=== PATIENT | female | born 1950 | race Caucasian/White ===

== ENCOUNTER 2019-01-14 16:08 | Inpatient (IN) ==
[2019-01-14] MEDS ORDERED: *HR* Heparin 5,000 UNIT/ML VIAL IVP ONE (21:36)
[2019-01-14] MEDS ORDERED: *HR* Heparin 5,000 UNIT/ML VIAL IVP PRN (21:36)
[2019-01-14] MEDS ORDERED: Heparin 25,000 UNIT/250 ML D5W 25,000 UNIT/250 ML IV.SOLN IVC SCH (21:45)
[2019-01-14] MEDS ORDERED: Ipratropium/Albuterol Neb 3 ML IH PRN (22:06)
[2019-01-14] MEDS ORDERED: Naloxone 0.4 MG/ML INJ IVP PRN (22:10)
[2019-01-14 23:07] LABS: Basophils % 0.2 %; Mean Corpuscular Volume 98.4 fL (83.0-100.0); Mean Platelet Volume 13.4 fL (9.4-12.4); Monocytes % 0.7 %
[2019-01-14 23:09] LABS: Hematocrit 37.7 % (35.3-44.9); Immature Granulocytes % 1.5 % (0-4); Lymphocytes # 0.9 K/mcL (0.6-4.6); Lymphocytes % 9.6 %; Mean Corpuscular HGB Conc 29.2 g/dL (31.6-35.5); Mean Corpuscular Hemoglobin 28.7 pg (28.0-33.3); Monocytes # 0.1 K/mcL (0.0-1.3); Neutrophils # 8.5 K/mcL (1.6-8.9); Nucleated Red Blood Cells 0.2 /100 WBC (0); Platelet Count 175 K/mcL (140-400); Red Blood Count 3.83 M/mcL (3.82-4.97); Red Cell Distribution Width 15.4 % (11.5-14.5)
--- NOTE | 2019-01-14 23:14 | Internal Med History&Physical ---
<Nathaniel Domingo S - Last Filed: 01/15/19 03:32> Date of Encounter: 01/15/19 Time of Encounter: 20:30 Internal Medicine - H&P: HPI Chief complaint: Shortness of breath Admitted From: Hospital to Hospital Transfer Plans for Post Hospital Care: Home History of present illness: Ms. Echevarria is a 68 year old female with PMHx of COPD on 3L home O2, CHF, HTN, DM, uterine cancer s/p resection (2007) presents to [place] as a transfer from [facility] with complaints of shortness of breath. Patient was saturating at 60% on 3L at [facility], was started on BIPAP, and transferred to [place]. Labs at [facility] were significant for WBC 15.2, trop 0.07 x2, pro-BNP 503, ABG pH 7.25 / pCO2 97 / HCO3 42. Patient is resting comfortably on BIPAP and is not in respiratory distress. She began feeling short of breath on Monday, and also admits to FLOOD, rhinorrhea, productive cough, lower extremity swelling. Her granddaughter gave her OTC cold and sinus medication which didn't provide any relief with her shortness of breath. Patient couldn't answer confidently if she takes lasix at home, and thinks she may have some but takes it as needed. She is on 3L O2 and had to increase it to 4L (max) at home, which only provided minimal relief. She is a former smoker, quit in 2004. Also quit drinking alcohol in 2004. Denies drug use. She has generalized pleuritic chest pain with deep breathing, but denies chest pain otherwise. She also admits to lower extremity swelling with redness of her right lower extremity, and her daughter states she was working in her garden this weekend. Patient doesn't recall being bitten by anything or seeing any ticks. She denies fevers/chills, nausea/vomiting/diarrhea, changes in bowel/bladder habits, numbness/tingling. Past Med Surg Social Fam HX - Past Medical History Medical history: arthritis, asthma, cancer, CHF, COPD, coronary artery disease, diabetes, hyperlipidemia, hypertension, myocardial infarction, renal disease - Past Surgical History Surgical History: cancer surgery, hysterectomy, knee replacement - Social History Smoking Status: Former smoker Alcohol use: none Drug use: none - Family History Daughter Living Status: Still Living Hx Family Cardiac Disorders: Yes (HTN) Hx Family Respiratory Disorders: No Hx Family Cancer: No Hx Family GI Disorders: No Hx Family Genitourinary Disorders: No Hx Family Endocrine Disorder: No Hx Family Musculoskeletal Disorders: No Hx Family Neuromuscular Disorders: No Hx Family Neurologic Disorders: No Hx Family HEENT Disorders: No Hx Family Autoimmune Disorders: No Hx Family Reproductive Disorders: No Hx Family Psychosocial Disorders: No Hx Family Medical Disorders: No Internal Medicine - H&P: Meds Gabapentin 800 mg PO TID 01/14/19 [History] Glimepiride [Amaryl] 2 mg PO BID 01/14/19 [History] Ipratropium/Albuterol Sulfate [Combivent Respimat Inhal [place]] 1 puff IH QID 01/14/19 [History] Ipratropium/Albuterol Sulfate [Iprat-Albut 0.5-3(2.5) mg/3 ml] 3 ml IH TID PRN 01/14/19 [History] Lisinopril [Zestril] 40 mg PO DAILY 01/14/19 [History] Metformin HCl [Glucophage] 500 mg PO BID 01/14/19 [History] Omeprazole [PriLOSEC] 40 mg PO DAILY 01/14/19 [History] Red Yeast Rice 600 mg PO DAILY 01/14/19 [History] Tiotropium [place] [Spiriva Respimat] 2 puff IH DAILY 01/14/19 [History] Tramadol HCl [Ultram] 50 mg PO Q6H PRN 01/14/19 [History] dilTIAZem HCl [Diltiazem 24Hr Cd] 360 mg PO DAILY 01/14/19 [History] Allergy/AdvReac Type Severity Reaction Status Date / Time acetaminophen [From Percocet] AdvReac See Verified 01/14/19 22:38 Comments oxycodone [From Percocet] AdvReac See Verified 01/14/19 22:38 Comments Kvjufwy-Egh-Frd Reductase AdvReac Muscle Pain Verified 01/14/19 22:38 Inhibitor [Statins] All Systems PM: A 10-system review of systems was performed and is negative for pertinent fin dings except as documented above in the HPI. - Constitutional Vitals: Temp Pulse Resp BP Pulse Ox 98.6 F 72 19 152/71 96 01/14/19 18:30 01/14/19 18:30 01/14/19 19:51 01/14/19 18:30 01/14/19 19:51 General appearance: Present: A&O X 3, morbidly obese, no acute distress Exam: Patient is resting well on BIPAP with no acute distress. - Eye Eye exam: Absent: conjunctival injection - Respiratory Respiratory exam: Present: rales (diffuse, worse in bases), wheezes (diffuse) - Cardiovascular Cardiovascular exam: Present: RRR. Absent: JVD - GI/Abdominal GI/Abdominal exam: Present: normal bowel sounds, soft. Absent: tenderness - Extremities Exam Extremities exam: Present: normal capillary refill, pedal edema (+3 pitting edema to knees bilaterally), warm, radial pulses palpable and symmetrical. Absent: calf tenderness - Expanded Lower Extremities Exam Lower Leg exam: Present: erythema (circular patch of erythema on right lateral lower leg) - Neurological Exam Neurological exam: Present: alert, oriented X3 (but had a difficult time answering basic questions about medical history and medications) - Psychiatric Psychiatric exam: Present: normal affect, normal mood - Skin Skin exam: Present: dry, warm Internal Med - H&P Results - Labs CBC & Chem 7: 01/14/19 22:54 01/14/19 22:54 - Assessment and Plan (1) Acute respiratory failure with hypoxemia Current Visit: Yes Status: Acute Assessment and plan: Likely 2/2 to mixed COPD and CHF exacerbation Patient presented to [facility] saturating at 60% on 2L oxygen She was placed on BIPAP at 45% and is now saturating at 94% She is not in any acute respiratory distress on BIPAP Initial ABG showed pH 7.25, pCO2 97, O2 69, HCO3 42 Will order d-dimer and venous doppler of lower extremities to rule out PE, may consider CTA pending results Will place patient on heparin drip as precaution WBC of 15.2 at [facility], will start IV doxycycline and rocephin in case infection Chest x-ray (2) COPD exacerbation Current Visit: Yes Status: Acute Assessment and plan: Patient with history of COPD on 3L home O2 Currently on BIPAP 45%, saturating at 94% Diffuse wheezing on my exam Will order solu-medrol and doxycycline Duonebs and albuertol inhaler PRN (3) CHF exacerbation Current Visit: Yes Status: Acute Assessment and plan: Crackles and lower extremity edema on my exam Unclear if patient uses lasix at home, she thinks she has some and takes it only as needed Start IV lasix 40 mg BID Chest x-ray Troponin is elevated, possibly due to exacerbation (0.07 at [facility], 0.05 here, continue to trend) proBNP 503 at [facility], repeat lab here Will get baseline echo Fluid restriction of 1.5 liters (51 oz) daily Monitor daily weight and I&Os Cardiac and diabetic diet Qualifiers: Heart failure type: unspecified Qualified Code(s): I50.9 - Heart failure, unspecified (4) Erythema of lower extremity Current Visit: Yes Status: Acute Assessment and plan: Patient with circular, erythematous patch on right lower extremity Patient was in garden all weekend WBC of 15.2 at [facility], will repeat here Start patient on IV doxycycline to cover for tick borne pathogens and MRSA cellulitis Lyme antibody titer RMSF antibody titer Marked line around erythematous region to assess change (5) HTN (hypertension) Current Visit: Yes Status: Acute Assessment and plan: BP 152/71 on arrival Continue home medications Qualifiers: Hypertension type: unspecified Qualified Code(s): I10 - Essential (primary) hypertension (6) Diabetes mellitus Current Visit: Yes Status: Acute Assessment and plan: Will start low-dose coverage sliding scale insulin TIDAC and HS Glucose checks Diabetic and cardiac diet Qualifiers: Qualified Code(s): E11.9 - Type 2 diabetes mellitus without complications (7) DVT prophylaxis Current Visit: Yes Status: Acute Assessment and plan: Patient on heparin drip - Time Spent With Patient Total time spent is greater than 50% in coordination of care (as documented) at patient's floor/unit and/or counseling patient: <Cruz Guardado - Last Filed: 01/15/19 05:55> Date of Encounter: 01/14/19 Time of Encounter: 22:32 - Constitutional Constitutional: fatigue, weakness, no chills, no fever(s), no night sweats - EENT Eyes: no blurry vision, no change in vision Ears: no ear pain, no tinnitus Nose, mouth and throat: no nasal congestion, no sore throat - Cardiovascular Cardiovascular ROS IM: dyspnea, dyspnea on exertion, edema, orthopnea, paroxysmal nocturnal dyspnea, no chest pain - Respiratory Respiratory: cough, wheezing, pain on inspiration, pain with cough, no hemoptysis, no chest congestion, no excessive phlegm production, no change in phlegm color - Gastrointestinal Gastrointestinal: abdominal pain, nausea, no diarrhea, no hematemesis, no hematochezia, no melena - Genitourinary Genitourinary: no dysuria, no flank pain, no hematuria - Musculoskeletal Musculoskeletal ROS IM: muscle cramps - Neurological Neurological ROS: no disequilibrium, no dizziness, no focal weakness, no frequent falls, no headache(s) - Psychiatric Psychiatric: anxiety, no depression - Endocrine Endocrine IM: no polydipsia, no polyuria - Hematologic/Lymphatic Hematologic/Lymphatic: easy bruising - Allergic/Immunologic Allergic/Immunologic: no GI upset with certain foods - Constitutional Vitals: Temp Pulse Resp BP Pulse Ox 98.6 F 87 16 165/73 93 01/15/19 03:29 01/15/19 03:29 01/15/19 04:32 01/15/19 03:01/15/19 04:32 General appearance: Present: A&O X 3, no acute distress Exam: tolerating BiPap mask - Head Head exam: Present: atraumatic, normal inspection - Eye Eye exam: Present: EOMI, PERRL. Absent: scleral icterus Pupils: Present: normal accommodation - ENT ENT exam: Present: mucous membranes dry, normal exam, normal oropharynx - Neck Neck exam general surgery: Present: full ROM, supple, trachea midline. Absent: lymphadenopathy, tenderness, nuchal rigidity, thyromegaly - Respiratory Respiratory exam: Present: prolonged expiratory phase, rales, respiratory distress, rhonchi, wheezes, tachypnea. Absent: chest wall tenderness - Cardiovascular Cardiovascular exam: Present: RRR, +S1, +S2. Absent: diastolic murmur, systolic murmur - GI/Abdominal GI/Abdominal exam: Present: soft. Absent: guarding, hepatomegaly, mass, rebound, splenomegaly, tenderness - Extremities Exam Extremities exam: Present: normal capillary refill, pedal edema (3+), warm, radial pulses palpable and symmetrical. Absent: normal inspection, mottling, tenderness - Back Exam Back exam: Absent: CVA tenderness (L), CVA tenderness (R) - Neurological Exam Neurological exam: Present: alert, CN II-XII intact, oriented X3, no focal deficits - Psychiatric Psychiatric exam: Present: normal affect, normal mood - Skin Skin exam: Present: dry, intact, warm Internal Med - H&P Results - Labs CBC & Chem 7: 01/14/19 22:54 01/14/19 22:54 Labs: Short CBC 01/14/19 Range/Units 22:54 WBC 9.7 (4.3-11.1) K/mcL Hgb 11.0 L (11.5-15.4) g/dL Hct 37.7 (35.3-44.9) % Plt Count 175 (140-400) K/mcL Neutrophils # 8.5 (1.6-8.9) K/mcL BMP 01/14/19 22:54 Sodium 142 Potassium 4.9 Chloride 102 Carbon Dioxide 33 H BUN 21 Creatinine 0.72 Glucose 188 H Calcium 9.1 Cardiac Enzymes 01/14/19 Range/Units 22:54 Troponin I 0.05 H* (< 0.04) ng/mL - Impressions ITS Impressions Chest X-Ray 01/14/19 22:35 IMPRESSION: Features of heart failure, including bilateral effusions with moderate interstitial pulmonary edema. Superimposed infection such as pneumonia or aspiration could be present in the appropriate clinical context. D/ / Kishor Guzman / Kishor Guzman Interpreting Provider: Kishor Guzman - Assessment and Plan (1) Acute respiratory failure with hypoxemia Current Visit: Yes Status: Acute (2) COPD exacerbation Current Visit: Yes Status: Acute (3) CHF exacerbation Current Visit: Yes Status: Acute Qualifiers: Heart failure type: unspecified Qualified Code(s): I50.9 - Heart failure, unspecified (4) Erythema of lower extremity Current Visit: Yes Status: Acute (5) HTN (hypertension) Current Visit: Yes Status: Acute Qualifiers: Hypertension type: unspecified Qualified Code(s): I10 - Essential (primary) hypertension (6) Diabetes mellitus Current Visit: Yes Status: Acute Qualifiers: Qualified Code(s): E11.9 - Type 2 diabetes mellitus without complications (7) DVT prophylaxis Current Visit: Yes Status: Acute - Time Spent With Patient Total time spent is greater than 50% in coordination of care (as documented) at patient's floor/unit and/or counseling patient: - Attending Attestation I discussed the patient [place], past medical history, review of systems, lab data, imaging data, and exam findings with Dr. Domingo. I then saw and examined patient independently as well. She remains on BiPAP, but she is trying to pull the mask off. She denies any chest pain, but she has significant respiratory di fficulty with hypoxemia, wheezing, coughing, and cough. She will be kept on BiPAP overnight and try to wean off in the morning. We will keep her on antibiotics, aerosols, and steroids. We will try to wean her off BiPAP and uses it on an as-needed basis later today to try and diurese her and monitor her troponin levels. We will continue Heparin drip and consider CTA chest and/or BLE Dopplers to rule out VTE. We will order an ECHO as we have no baseline LV function. She may also warrant cardiology consultation. We will keep her on sliding scale insulin and monitor glucose with adjustments as necessary. If she fails BiPAP weaning, she will need pulmonary consultation and guidance for further management. Other than my comments above and documented examined findings, I agree with Dr. Domingo's assessment and plan.
[2019-01-14] MEDS ORDERED: Dextrose Gel 15 GM/37.5 ML TUBE PO PRN ×2 (23:21)
[2019-01-14] MEDS ORDERED: *HR* Dextrose 50 % in Water (Syg) 50 ML SYRINGE IVP PRN (23:21)
[2019-01-14] MEDS ORDERED: D5% in Water 1,000 ML IVC PRN (23:21)
[2019-01-14] MEDS ORDERED: traMADol 50 MG TABLET PO PRN (23:23)
[2019-01-14 23:29] LABS: BUN/Creatinine Ratio 29 (6-26); Blood Urea Nitrogen 21 mg/dL (8-23); Calcium 9.1 mg/dL (8.6-10.3); Carbon Dioxide 33 mEq/L (23-29); Chloride 102 mEq/L (98-107); Glucose 188 mg/dL (70-105); Heparin anti-factor XA UFH 0.02 IU/mL (0.30-0.70); INR 1.1; Magnesium 1.7 mg/dL (1.6-2.6); Osmolality,Calculated 302 (280-300); Potassium 4.9 mEq/L (3.5-5.1); Prothrombin Time 12.4 Seconds (9.4-12.1); Sodium 142 mEq/L (136-145); eGFR For Non-African Americans > 60 (> 60)
[2019-01-14] MEDS: cefTRIAXone 1,000 MG in Water for inj. (sterile) 20 ML 10 ML IVP SCH (23:31)
[2019-01-14] MEDS: Furosemide 40 MG/4 ML VIAL IVP SCH (23:31)
[2019-01-15] LABS: Platelet Estimate Normal (Normal)
[2019-01-15] MEDS: Insulin LISPRO 300 UNITS/3 ML VIAL SQ SCH ×5 (00:16→20:26)
[2019-01-15] MEDS: Gabapentin 400 MG CAPSULE PO SCH ×4 (00:53→20:30)
[2019-01-15] MEDS ORDERED: *HR* LORazepam 2 MG/ML VIAL IVP ONE (02:00)
[2019-01-15] MEDS ORDERED: MethylPREDNISolone 40 MG/ML VIAL IVP SCH (06:00)
[2019-01-15] MEDS: Doxycycline 100 MG in 0.9 % Sodium Chloride Mini Bag 100 ML IVPB SCH ×2 (06:45→18:24)
[2019-01-15] MEDS: *HR* Heparin 5,000 UNIT/ML VIAL IVP PRN ×2 (07:01→14:07)
[2019-01-15] MEDS: Lisinopril 20 MG TABLET PO SCH (09:01)
[2019-01-15] MEDS: cefTRIAXone 1,000 MG in Water for inj. (sterile) 20 ML 10 ML IVP SCH (09:02)
[2019-01-15] MEDS: Furosemide 40 MG/4 ML VIAL IVP SCH ×2 (09:02→20:29)
[2019-01-15] MEDS: Diltiazem CD (24hr) 180 MG CAPSULE PO SCH (09:02)
[2019-01-15] MEDS ORDERED: Perflutren Lipid Microsphere 1.3 ML in 0.9 % Sodium Chloride 8.7 ML IVP ONE (10:46)
[2019-01-15] MEDS ORDERED: Isovue-370 500 ML BOTTLE IVP ONE (14:54)
--- NOTE | 2019-01-15 14:59 | Internal Med Progress Note ---
Hospitalist Progress Note - Encounter Date of Encounter: 01/15/19 Time of Encounter: 14:56 - Subjective Interval History: Patient seen and examined at bedside. Patient states that she feels slightly better today. She feels like her breathing is slightly improved. She denies any chest pain, fever, chills. - Exam Vitals: Temp Pulse Resp BP Pulse Ox 98.5 F 80 20 158/71 91 01/15/19 12:15 01/15/19 12:15 01/15/19 12:15 01/15/19 12:15 01/15/19 12:15 Exam: Gen.: Alert and oriented 3, no acute distress Heart: Regular rate and rhythm, no murmurs, rubs, gallops Lungs: Diminished bibasilar with rales, rare scattered wheezes, no rhonchi. - Assessment and Plan (1) Acute and chronic respiratory failure Current Visit: Yes Status: Acute Assessment and Plan: Etiology likely multifactorial in the setting of CHF exacerbation, COPD exacerbation. Clinically appears improving. Patient also had elevated d-dimer and is hypoxic so PE cannot be ruled out. We will obtain CT of the chest. Continue supplemental oxygen to maintain saturation greater than 88%. Patient uses 3 L at baseline. (2) COPD exacerbation Current Visit: Yes Status: Acute Assessment and Plan: Patient is wheezing on exam with hypoxia and shortness of breath. Continue doxycycline, transition to oral prednisone 40 mg daily. (3) CHF exacerbation Current Visit: Yes Status: Acute Assessment and Plan: Echocardiogram reveals moderate diastolic dysfunction with preserved EF. Patient has evidence of acute exacerbation with pulmonary edema and respiratory failure. Continue IV diuresis, recheck renal function morning. (4) Rash Current Visit: Yes Status: Acute Assessment and Plan: Rash noted on lower extremities. Continue doxycycline. Lyme titer noted to be negative. (5) HTN (hypertension) Current Visit: Yes Status: Acute Assessment and Plan: Blood pressure mildly elevated but acceptable. Continue home medications. Continue monitor. (6) Diabetes mellitus Current Visit: Yes Status: Acute Assessment and Plan: Blood sugars under good control. Continue sliding scale insulin. (7) DVT prophylaxis Current Visit: Yes Status: Acute Assessment and Plan: Currently on heparin drip - Time Spent with Patient Total time spent is greater than 50% in coordination of care (as documented) at patient's floor/unit and/or counseling patient: Internal Medicine: Result - Labs CBC & Chem 7: 01/14/19 22:54 01/14/19 22:54 Labs: Short CBC 01/14/19 Range/Units 22:54 WBC 9.7 (4.3-11.1) K/mcL Hgb 11.0 L (11.5-15.4) g/dL Hct 37.7 (35.3-44.9) % Plt Count 175 (140-400) K/mcL Neutrophils # 8.5 (1.6-8.9) K/mcL BMP 01/14/19 22:54 Sodium 142 Potassium 4.9 Chloride 102 Carbon Dioxide 33 H BUN 21 Creatinine 0.72 Glucose 188 H Calcium 9.1 Cardiac Enzymes 01/14/19 01/15/19 01/15/19 Range/Units 22:54 05:33 12:40 Troponin I 0.05 H* 0.04 H* 0.04 H* (< 0.04) ng/mL - ABG Interpretation ABG results: PT/INR, D-dimer PT 12.4 Seconds (9.4-12.1) H 01/14/19 22:54 938 ng/mLFEU (0-500) H 01/14/19 22:54 - Impressions Impressions Chest X-Ray 01/14/19 22:35 IMPRESSION: Features of heart failure, including bilateral effusions with moderate interstitial pulmonary edema. Superimposed infection such as pneumonia or aspiration could be present in the appropriate clinical context. D/ / Kishor Guzman / Kishor Guzman Interpreting Provider: Kishor Guzman Echocardiogram 01/15/19 21:36 Impressions: LVEF 60%. Moderate left ventricular diastolic dysfunction. Definity echo contrast was used. Normal right ventricular structure and function. Borderline mild evidence for aortic stenosis. No pulmonary hypertension. Left Ventricular Wall Motion: Rest Echo Findings All wall segments showed normal motion. Findings: Study Quality * Technically challenging due to body habitus. ECG Findings * Normal sinus rhythm. Left Ventricle * Moderate left ventricular diastolic dysfunction. * Definity echo contrast was used. * LV chamber size and wall thickness measurements not well obtained. * LVEF 60%. Right Ventricle * Normal right ventricular structure and function. Left Atrium * Moderate-severely dilated left atrium. Right Atrium * Normal right atrial size. Aortic Valve * Aortic valve not well visualized. * Borderline mild evidence for aortic stenosis. * Trace aortic regurgitation. Mitral Valve * Mildly calcified mitral valve leaflets. * No mitral stenosis. * Trace mitral regurgitation. Tricuspid Valve * Tricuspid valve not well visualized. * Estimated RA pressure is 3 mmHg. * Estimated RVSP is 12 mmHg. * No pulmonary hypertension. Pulmonic Valve * Pulmonic valve is not well visualized. * No pulmonic stenosis. * No pulmonic regurgitation. Pulmonary Artery * Pulmonary artery not well visualized. Aorta * Not well visualized. Pericardium * There is no pericardial effusion present. Interatrial Septum * No evidence of PFO by color Doppler. IVC * Normal IVC dimensions and inspiratory collapse. Consult Discharge Plan - Plan Referrals: Henry Jerry DO [Primary Care Provider] - (1) Acute and chronic respiratory failure Qualifiers: Respiratory failure complication: hypoxia Qualified Code(s): J96.21 - Acute and chronic respiratory failure with hypoxia (3) CHF exacerbation Qualifiers: Heart failure type: diastolic Qualified Code(s): I50.33 - Acute on chronic diastolic (congestive) heart failure (5) HTN (hypertension) Qualifiers: Hypertension type: unspecified Qualified Code(s): I10 - Essential (primary) hypertension (6) Diabetes mellitus Qualifiers: Qualified Code(s): E11.9 - Type 2 diabetes mellitus without complications
[2019-01-16] MEDS: Doxycycline 100 MG in 0.9 % Sodium Chloride Mini Bag 100 ML IVPB SCH ×2 (04:57→17:04)
[2019-01-16 05:11] LABS: Basophils % 0.2 %; Eosinophils % 0.1 %; Hemoglobin 11.3 g/dL (11.5-15.4); Immature Granulocytes % 0.7 % (0-4); Lymphocytes # 2.7 K/mcL (0.6-4.6); Lymphocytes % 17.5 %; Mean Corpuscular Hemoglobin 28.4 pg (28.0-33.3); Mean Platelet Volume 13.8 fL (9.4-12.4); Monocytes # 1.1 K/mcL (0.0-1.3); Monocytes % 7.3 %; Neutrophils # 11.4 K/mcL (1.6-8.9); Platelet Count 191 K/mcL (140-400); Red Blood Count 3.98 M/mcL (3.82-4.97); Red Cell Distribution Width 15.6 % (11.5-14.5); Segmented Neutrophils % 74.2 %
[2019-01-16 05:32] LABS: BUN/Creatinine Ratio 36 (6-26); Blood Urea Nitrogen 27 mg/dL (8-23); Calcium 8.8 mg/dL (8.6-10.3); Carbon Dioxide 39 mEq/L (23-29); Chloride 96 mEq/L (98-107); Glucose 119 mg/dL (70-105); Magnesium 1.9 mg/dL (1.6-2.6); Osmolality,Calculated 302 (280-300); Potassium 4.4 mEq/L (3.5-5.1); Sodium 143 mEq/L (136-145); eGFR For Non-African Americans > 60 (> 60)
[2019-01-16] MEDS: Insulin LISPRO 300 UNITS/3 ML VIAL SQ SCH ×4 (08:29→20:07)
[2019-01-16] MEDS: Lisinopril 20 MG TABLET PO SCH (08:30)
[2019-01-16] MEDS: Gabapentin 400 MG CAPSULE PO SCH ×3 (08:30→20:03)
[2019-01-16] MEDS: predniSONE 20 MG TABLET PO SCH (08:30)
[2019-01-16] MEDS: Diltiazem CD (24hr) 180 MG CAPSULE PO SCH (08:30)
[2019-01-16] MEDS: Furosemide 40 MG/4 ML VIAL IVP SCH ×2 (08:30→20:04)
--- NOTE | 2019-01-16 11:58 | Internal Med Progress Note ---
Hospitalist Progress Note - Encounter Date of Encounter: 01/16/19 Time of Encounter: 11:55 - Subjective Interval History: Patient seen and examined at bedside. Patient states that she feels pretty good today. She feels like her breathing is much improved. She reports mild cough that is improving. Denies any chest pain, fever, chills. - Exam Vitals: Temp Pulse Resp BP Pulse Ox 98.0 F 59 18 145/79 92 01/16/19 11:40 01/16/19 11:40 01/16/19 11:40 01/16/19 11:40 01/16/19 11:40 Exam: Gen.: Alert and oriented 3, no acute distress Heart: Regular rate and rhythm, no murmurs, rubs, gallops Lungs: Diminished bibasilar with no rales, rhonchi, wheezes. - Assessment and Plan (1) Acute and chronic respiratory failure Current Visit: Yes Status: Resolved Assessment and Plan: Resolved at this time. Patient has returned to her baseline O2 dose of 4 L. C ontinue supplemental oxygen at 4 L. (2) Multiple thyroid nodules Current Visit: Yes Status: Acute Assessment and Plan: Multiple thyroid nodules noted on CT of the chest. We will obtain thyroid ultrasound. TSH checked and normal. (3) COPD exacerbation Current Visit: Yes Status: Acute Assessment and Plan: Wheezing has resolved, clinically the patient is improving. Continue doxycycline, transition to oral prednisone 40 mg daily. Today's date 3 of antibiotics and steroids, we will continue for a total of 5 days. (4) CHF exacerbation Current Visit: Yes Status: Acute Assessment and Plan: Echocardiogram reveals moderate diastolic dysfunction with preserved EF. Patient has evidence of acute exacerbation with pulmonary edema and respiratory failure. Clinically improving, renal function stable. Continue IV diuresis, likely transition to by mouth tomorrow. (5) Rash Current Visit: Yes Status: Acute Assessment and Plan: Rash noted on lower extremities. Continue doxycycline. Lyme titer noted to be negative. (6) HTN (hypertension) Current Visit: Yes Status: Acute Assessment and Plan: Blood pressure mildly elevated but acceptable. Continue home medications. Continue monitor. (7) Diabetes mellitus Current Visit: Yes Status: Acute Assessment and Plan: Blood sugars under good control. Continue sliding scale insulin. (8) DVT prophylaxis Current Visit: Yes Status: Acute Assessment and Plan: Currently on heparin drip - Time Spent with Patient Total time spent is greater than 50% in coordination of care (as documented) at patient's floor/unit and/or counseling patient: Internal Medicine: Result - Labs CBC & Chem 7: 01/16/19 03:59 01/16/19 03:59 Labs: Short CBC 01/16/19 Range/Units 03:59 WBC 15.3 H D (4.3-11.1) K/mcL Hgb 11.3 L (11.5-15.4) g/dL Hct 39.0 (35.3-44.9) % Plt Count 191 (140-400) K/mcL Neutrophils # 11.4 H (1.6-8.9) K/mcL BMP 01/16/19 03:59 Sodium 143 Potassium 4.4 Chloride 96 L Carbon Dioxide 39 H BUN 27 H Creatinine 0.76 Glucose 119 H Calcium 8.8 Cardiac Enzymes 01/15/19 Range/Units 12:40 Troponin I 0.04 H* (< 0.04) ng/mL - ABG Interpretation ABG results: PT/INR, D-dimer PT 12.4 Seconds (9.4-12.1) H 01/14/19 22:54 938 ng/mLFEU (0-500) H 01/14/19 22:54 - Impressions Impressions Chest CTA 01/15/19 14:54 IMPRESSION: Moderate bilateral pleural effusions and bibasilar airspace disease. Stable left adrenal mass incompletely imaged. Nonemergent MRI would be helpful for further characterization if clinically warranted. Bilateral thyroid lesions measuring up to 15 mm on the right. Follow-up nonemergent thyroid ultrasound recommended non emergently if this has not already been performed. D/ / Srikanth Bergman MD / Srikanth Bergman MD Interpreting Provider: Srikanth Bergman MD Echocardiogram 01/15/19 21:36 Impressions: LVEF 60%. Moderate left ventricular diastolic dysfunction. Definity echo contrast was used. Normal right ventricular structure and function. Borderline mild evidence for aortic stenosis. No pulmonary hypertension. Left Ventricular Wall Motion: Rest Echo Findings All wall segments showed normal motion. Findings: Study Quality * Technically challenging due to body habitus. ECG Findings * Normal sinus rhythm. Left Ventricle * Moderate left ventricular diastolic dysfunction. * Definity echo contrast was used. * LV chamber size and wall thickness measurements not well obtained. * LVEF 60%. Right Ventricle * Normal right ventricular structure and function. Left Atrium * Moderate-severely dilated left atrium. Right Atrium * Normal right atrial size. Aortic Valve * Aortic valve not well visualized. * Borderline mild evidence for aortic stenosis. * Trace aortic regurgitation. Mitral Valve * Mildly calcified mitral valve leaflets. * No mitral stenosis. * Trace mitral regurgitation. Tricuspid Valve * Tricuspid valve not well visualized. * Estimated RA pressure is 3 mmHg. * Estimated RVSP is 12 mmHg. * No pulmonary hypertension. Pulmonic Valve * Pulmonic valve is not well visualized. * No pulmonic stenosis. * No pulmonic regurgitation. Pulmonary Artery * Pulmonary artery not well visualized. Aorta * Not well visualized. Pericardium * There is no pericardial effusion present. Interatrial Septum * No evidence of PFO by color Doppler. IVC * Normal IVC dimensions and inspiratory collapse. Consult Discharge Plan - Plan Referrals: Henry Jerry DO [Primary Care Provider] - 01/23/19 2:00 pm (please send discharge summary) (1) Acute and chronic respiratory failure Qualifiers: Respiratory failure complication: hypoxia Qualified Code(s): J96.21 - Acute and chronic respiratory failure with hypoxia (4) CHF exacerbation Qualifiers: Heart failure type: diastolic Qualified Code(s): I50.33 - Acute on chronic diastolic (congestive) heart failure (6) HTN (hypertension) Qualifiers: Hypertension type: unspecified Qualified Code(s): I10 - Essential (primary) hypertension (7) Diabetes mellitus Qualifiers: Qualified Code(s): E11.9 - Type 2 diabetes mellitus without complications
[2019-01-16] MEDS: *HR* Heparin 5,000 UNIT/ML VIAL SQ SCH ×2 (15:05→23:19)
[2019-01-17] MEDS: Doxycycline 100 MG in 0.9 % Sodium Chloride Mini Bag 100 ML IVPB SCH (06:02)
[2019-01-17] MEDS: *HR* Heparin 5,000 UNIT/ML VIAL SQ SCH ×2 (06:03→14:02)
[2019-01-17 06:31] LABS: Basophils % 0.3 %; Eosinophils # 0.1 K/mcL (0.0-0.6); Eosinophils % 0.7 %; Hematocrit 39.5 % (35.3-44.9); Hemoglobin 11.8 g/dL (11.5-15.4); Lymphocytes # 3.6 K/mcL (0.6-4.6); Lymphocytes % 26.2 %; Mean Corpuscular HGB Conc 29.9 g/dL (31.6-35.5); Mean Corpuscular Hemoglobin 28.4 pg (28.0-33.3); Mean Platelet Volume 13.9 fL (9.4-12.4); Monocytes # 0.8 K/mcL (0.0-1.3); Monocytes % 6.2 %; Neutrophils # 8.8 K/mcL (1.6-8.9); Platelet Count 183 K/mcL (140-400); Red Blood Count 4.16 M/mcL (3.82-4.97); Red Cell Distribution Width 15.2 % (11.5-14.5); Segmented Neutrophils % 64.6 %
[2019-01-17 06:38] LABS: BUN/Creatinine Ratio 39 (6-26); Blood Urea Nitrogen 27 mg/dL (8-23); Calcium 9.1 mg/dL (8.6-10.3); Carbon Dioxide 42 mEq/L (23-29); Chloride 96 mEq/L (98-107); Glucose 106 mg/dL (70-105); Osmolality,Calculated 302 (280-300); Potassium 4.5 mEq/L (3.5-5.1); Sodium 143 mEq/L (136-145); eGFR For Non-African Americans > 60 (> 60)
[2019-01-17] MEDS ORDERED: Albuterol 2.5 MG/3 ML NEBULIZER IH PRN (07:40)
--- NOTE | 2019-01-17 07:48 | Discharge Summary ---
- NOTES TO OUTPATIENT PROVIDER Notes to Outpatient Provider: Patient underwent CT of the chest that incidentally found an adrenal nodule and multiple thyroid nodules, thyroid ultrasound showed multiple benign-appearing nodules. Recommend continued outpatient follow-up for adrenal nodule and thyroid nodules. Orders not resulted at time of discharge: Pending orders 01/14/19 22:54 ProBrain Natriuretic Peptide Routine [facility] Spotted Ab,IgG & IgM Routine Date of Encounter: 01/17/19 Time of Encounter: 07:47 - Discharge Diagnosis (1) Acute and chronic respiratory failure Priority: Primary Status: Resolved Qualifiers: Respiratory failure complication: hypoxia Qualified Code(s): J96.21 - Acute and chronic respiratory failure with hypoxia (2) COPD exacerbation Priority: Primary Status: Acute (3) CHF exacerbation Priority: Primary Status: Acute Qualifiers: Heart failure type: diastolic Qualified Code(s): I50.33 - Acute on chronic diastolic (congestive) heart failure (4) Multiple thyroid nodules Priority: Secondary Status: Chronic (5) Rash Priority: Secondary Status: Acute (6) HTN (hypertension) Priority: Secondary Status: Acute Qualifiers: Hypertension type: unspecified Qualified Code(s): I10 - Essential (primary) hypertension (7) Diabetes mellitus Priority: Secondary Status: Acute Qualifiers: Qualified Code(s): E11.9 - Type 2 diabetes mellitus without complications Hospital course: Ms. Echevarria is a 68 year old female with history of hypertension, diabetes presented with shortness of breath. She has had been acute on chronic hypoxic respiratory failure which is likely multifactorial likely due to a combination of COPD exacerbation and diastolic heart failure exacerbation. She underwent IV diuresis and responded well. She is also treated with doxycycline and prednisone for COPD exacerbation. Patient also had a CTA to rule out PE which was negative for PE but did find incidentally multiple thyroid nodules as well as an adrenal nodule. Per radiology recommendations I did perform a thyroid ultrasound that showed multiple benign-appearing nodules. Radiology recommended continued outpatient follow-up for these nodules as well as the adrenal nodule which I do recommend. Patient returned to baseline at the time of discharge. Patient will be discharged home in stable condition. Discharge discussed with: patient - Time Spent with Patient Total time spent providing and/or coordinating discharge services: Time spent: Greater than 30 minutes (35 minutes) - Discharge Medications Prescriptions: New Doxycycline 100 mg PO Q12HR #5 capsule Furosemide [Lasix] 40 mg PO DAILY #30 tablet predniSONE [PredniSONE] 40 mg PO DAILY #3 tablet Continued Ipratropium/Albuterol Sulfate [Combivent Respimat 20-100 Mcg] 1 puff IH QID Ipratropium/Albuterol Sulfate [Iprat-Albut 0.5-3(2.5) mg/3 ml] 3 ml IH TID PRN PRN Reason: Shortness Of Breath Gabapentin 800 mg PO TID dilTIAZem HCl [Diltiazem 24Hr Cd] 360 mg PO DAILY Glimepiride [Amaryl] 2 mg PO HS Omeprazole [PriLOSEC] 40 mg PO DAILY Metformin HCl [Glucophage] 500 mg PO BID Lisinopril [Zestril] 40 mg PO DAILY Tramadol HCl [Ultram] 50 mg PO Q6H PRN PRN Reason: Pain Tiotropium [place] [Spiriva Respimat] 2 puff IH DAILY Red Yeast Rice 600 mg PO DAILY Aspirin [Lo-Dose Aspirin EC] 81 mg PO DAILY Cholecalciferol (D-3) [Vitamin D] 1,000 unit PO DAILY Cyanocobalamin (Vitamin B-12) [Vitamin B-12] 1,000 mcg PO DAILY DiphenhydraMINE [Benadryl] 50 mg PO BID Iron Amino Acid Chelate/B12/FA [Ferractiv Iron 27 mg Formula] 1 cap PO DAILY Naproxen Sodium [Aleve] 220 mg PO HS Home Medications: Gabapentin 800 mg PO TID 01/14/19 [History] Glimepiride [Amaryl] 2 mg PO HS 01/14/19 [History] Ipratropium/Albuterol Sulfate [Combivent Respimat 20-100 Mcg] 1 puff IH QID 01/14/19 [History] Ipratropium/Albuterol Sulfate [Iprat-Albut 0.5-3(2.5) mg/3 ml] 3 ml IH TID PRN 01/14/19 [History] Lisinopril [Zestril] 40 mg PO DAILY 01/14/19 [History] Metformin HCl [Glucophage] 500 mg PO BID 01/14/19 [History] Omeprazole [PriLOSEC] 40 mg PO DAILY 01/14/19 [History] Red Yeast Rice 600 mg PO DAILY 01/14/19 [History] Tiotropium [place] [Spiriva Respimat] 2 puff IH DAILY 01/14/19 [History] Tramadol HCl [Ultram] 50 mg PO Q6H PRN 01/14/19 [History] dilTIAZem HCl [Diltiazem 24Hr Cd] 360 mg PO DAILY 01/14/19 [History] Aspirin [Lo-Dose Aspirin EC] 81 mg PO DAILY 01/15/19 [History] Cholecalciferol (D-3) [Vitamin D] 1,000 unit PO DAILY 01/15/19 [History] Cyanocobalamin (Vitamin B-12) [Vitamin B-12] 1,000 mcg PO DAILY 01/15/19 [ History] DiphenhydraMINE [Benadryl] 50 mg PO BID 01/15/19 [History] Iron Amino Acid Chelate/B12/FA [Ferractiv Iron 27 mg Formula] 1 cap PO DAILY 01/15/19 [History] Naproxen Sodium [Aleve] 220 mg PO HS 01/15/19 [History] Doxycycline 100 mg PO Q12HR #5 capsule 01/17/19 [Rx] Furosemide [Lasix] 40 mg PO DAILY #30 tablet 01/17/19 [Rx] predniSONE [PredniSONE] 40 mg PO DAILY #3 tablet 01/17/19 [Rx] Allergies/Adverse Reactions: Allergy/AdvReac Type Severity Reaction Status Date / Time oxycodone [From Percocet] AdvReac See Verified 01/14/19 22:38 Comments Bubdqyc-Fik-Wai Reductase AdvReac Muscle Pain Verified 01/14/19 22:38 Inhibitor [Statins] Date of admission: 01/14/19 18:18 Primary care physician: Henry Jerry Consults: 01/14/19 18:45 Consult to Wallpaper Printer [CONS] Routine Reason for SW Consult: may need home health services 01/16/19 08:13 Consult to Occupational Therapy [CONS] Routine Comment: Evaluate, develop and implement POC Reason for Consult: Weakness Does patient have active BEDREST order?: No Is patient medically & hemodynamically stable?: Yes Consult to Physical Therapy [CONS] Routine Comment: Evaluate, develop and implement POC Reason for Consult: Weakness Does patient have active BEDREST order?: No Is patient medically & hemodynamically stable?: Yes Discharging clinician: Ap Edmond Anticipated date of discharge: 01/17/19 - Constitutional Vitals: Temp Pulse Resp BP Pulse Ox 97.8 F 58 16 152/70 97 01/17/19 04:24 01/17/19 04:24 01/17/19 04:24 01/17/19 04:24 01/17/19 04:24 General appearance: Present: A&O X 3, no acute distress Exam: . - Respiratory Respiratory exam: Present: CTAB. Absent: rales, rhonchi, wheezes - Cardiovascular Cardiovascular exam: Present: RRR. Absent: gallop, rubs, systolic murmur - Patient Status Disposition: Home, Self-Care Condition: Fair Functional capacity at discharge: independent ambulation Overall status at discharge: patient is progressing back to baseline - Discharge Instructions Follow Up With: Henry Jerry DO [Primary Care Provider] - 01/23/19 2:00 pm (please send discharge summary) Additional Instructions: Please follow-up with your primary care physician within one week. Please resume your home medications. Please take your Lasix daily. Please take your antibiotic and steroid until complete. Please return for any new or worsening symptoms. - Diet and Activity Activity: increase activity as tolerated Diet: diabetic diet, low salt diet
[2019-01-17] MEDS ORDERED: Furosemide 40 MG/4 ML VIAL IVP SCH (08:00)
[2019-01-17] MEDS: Insulin LISPRO 300 UNITS/3 ML VIAL SQ SCH ×3 (08:15→17:00)
[2019-01-17] MEDS: Lisinopril 20 MG TABLET PO SCH (08:29)
[2019-01-17] MEDS: Diltiazem CD (24hr) 180 MG CAPSULE PO SCH (08:29)
[2019-01-17] MEDS: Gabapentin 400 MG CAPSULE PO SCH ×2 (08:29→14:02)
[2019-01-17] MEDS: predniSONE 20 MG TABLET PO SCH (08:29)
[2019-01-17] MEDS ORDERED: Furosemide 40 MG TABLET PO SCH (09:00)
[2019-01-17 12:13] VITALS: BP 164/70
[2019-01-17] MEDS ORDERED: Doxycycline 100 MG CAPSULE PO SCH (18:00)
== END 2019-01-17 18:06 | disposition home or self-care (01) | DRG 291 ==
LOC: SUATTDRO 18:18 → 2NNU 18:18 → 2ANU 01-17 01:27
PROVIDERS: ADMIT Student in an Organized Health Care Education/Training Program; ATTEND Internal Medicine

== ENCOUNTER 2019-04-24 18:42 | Inpatient (IN) ==
[2019-04-24] MEDS ORDERED: Aspirin 81 MG TAB.CHEW PO ONE (18:57)
--- NOTE | 2019-04-24 19:00 | Emergency Department Note ---
Disposition Clinical Impression: Abdominal pain Qualifiers: Abdominal location: epigastric Qualified Code(s): R10.13 - Epigastric pain Disposition: Admitted As Inpatient Condition: Fair Instructions: Biliary Colic (ED) Prescriptions: Hyoscyamine SL [Levsin SL] 0.125 mg SL Q4HR #12 tab.subl Referrals: Henry Jerry DO [Primary Care Provider] - Domenica Miller,Dejuan Rincon [Non-Partnered Physician] - Forms: ED Satisfaction Letter Time of Disposition: 01:19 Chest Pain HPI - General Chief Complaint: ED Chest Pain Stated Complaint: chest pain Time Seen by Provider: 04/24/19 18:46 Source: patient Mode of arrival: private vehicle Limitations: no limitations Vital Signs Reviewed: Yes Nursing Notes Reviewed: Yes - History of Present Illness HPI Narrative: 68 old female with a past medical history of previous heart attack approximately 6 years ago with resultant cardiac stenting, reporting to the emergency department with chest pain that began approximate 45 minutes ago while she was going to the bathroom. When asked to describe where her pain is patient states that it is everywhere, she states that she was using the toilet when her pain started. She says it is severe, 10 out of 10, she states that her back hurts her stomach hurts her head hurts and her chest hurts. She is also reporting some shortness of breath. Patient is having difficulty holding a conversation as she continues to repeat over and over again "it hurts". Severity scale (1-10): 10 - Related Data Home Medications Medication Instructions Recorded Confirmed Gabapentin 800 mg PO TID 01/14/19 01/15/19 Glimepiride [Amaryl] 2 mg PO HS 01/14/19 01/15/19 Ipratropium/Albuterol Sulfate 1 puff IH QID 01/14/19 01/14/19 [Combivent Respimat 20-100 Mcg] Ipratropium/Albuterol Sulfate 3 ml IH TID PRN 01/14/19 01/14/19 [Iprat-Albut 0.5-3(2.5) mg/3 ml] Lisinopril [Zestril] 40 mg PO DAILY 01/14/19 01/14/19 Metformin HCl [Glucophage] 500 mg PO BID 01/14/19 01/14/19 Omeprazole [PriLOSEC] 40 mg PO DAILY 01/14/19 01/14/19 Red Yeast Rice 600 mg PO DAILY 01/14/19 01/15/19 Tiotropium [place] [Spiriva 2 puff IH DAILY 01/14/19 01/14/19 Respimat] Tramadol HCl [Ultram] 50 mg PO Q6H PRN 01/14/19 01/14/19 dilTIAZem HCl [Diltiazem 24Hr Cd] 360 mg PO DAILY 01/14/19 01/15/19 Aspirin [Lo-Dose Aspirin EC] 81 mg PO DAILY 01/15/19 01/15/19 Cholecalciferol (D-3) [Vitamin D] 1,000 unit PO DAILY 01/15/19 01/15/19 Cyanocobalamin (Vitamin B-12) 1,000 mcg PO DAILY 01/15/19 01/15/19 [Vitamin B-12] DiphenhydraMINE [Benadryl] 50 mg PO BID 01/15/19 01/15/19 Iron Amino Acid Chelate/B12/FA 1 cap PO DAILY 01/15/19 01/15/19 [Ferractiv Iron 27 mg Formula] Naproxen Sodium [Aleve] 220 mg PO HS 01/15/19 01/15/19 Previous Rx's Medication Instructions Recorded Doxycycline 100 mg PO Q12HR #5 capsule 01/17/19 Furosemide [Lasix] 40 mg PO DAILY #30 tablet 01/17/19 predniSONE [PredniSONE] 40 mg PO DAILY #3 tablet 01/17/19 Hyoscyamine SL [Levsin SL] 0.125 mg SL Q4HR #12 tab.subl 04/24/19 Allergies Allergy/AdvReac Type Severity Reaction Status Date / Time oxycodone [From Percocet] AdvReac See Verified 01/14/19 22:38 Comments Ccbzozr-Sio-Zuy Reductase AdvReac Muscle Pain Verified 01/14/19 22:38 Inhibitor [Statins] Review of Systems: In addition to that documented in the HPI above, the additional ROS was obtained: Constitutional: Denies fevers or chills Eyes: Denies vision changes ENMT: Denies sore throat CV: Reports epigastric chest pain Resp: Reports SOB GI: Denies diarrhea Reports mid-epigastric pain, nausea, vomiting : Denies painful urination MSK: Denies recent trauma Skin: Denies new rashes Neuro: Denies new numbness or tingling or weakness Chest Pain PMH - Past Medical History Medical history: Reports: arthritis, asthma, cancer, CHF, COPD, coronary artery disease, diabetes, hyperlipidemia, hypertension, myocardial infarction, renal disease Surgical history: Reports: cancer surgery, hysterectomy, knee replacement - Social History Smoking Status: Former smoker Alcohol use: Reports: none Drug use: Reports: none Physical Exam General: A&O x 3. No acute distress. Appears to be in significant pain. Well de veloped, well nourished. Head: atraumatic, normocephalic. ENT: No conjunctival injection, no scleral icterus. PERRLA. EOMI. Oropharynx non- erythematous. mucous membranes moist. Neuro: No focal deficits, no speech deficit, no facial droop, mentating well. Pulm: Lungs CTAB A/P. No wheezes, rales, ronchi. Cardio: RRR no m/r/g. Chest not tender to palpation. Abd: Soft, non-distended. Normoactive bowel sounds. Diffusely tender to palpation. No guarding. Non rigid. Extremities: Radial pulses 2+ bryce, dorsalis pedis/posterior tibialis 2+ bryce. No LE edema. No cyanosis, clubbing. Skin: warm, dry, intact. No rashes. Psych: Appropriate mood and affect. Answers questions appropriately. Cooperative with exam. - General Limitations: no limitations General appearance: alert, in no apparent distress Course Vital Signs Temperature 97.8 F 04/24/19 18:46 Pulse Rate 74 04/24/19 18:46 Respiratory Rate 26 04/24/19 18:46 Blood Pressure 169/70 04/24/19 18:46 O2 Sat by Pulse Oximetry 99 04/24/19 18:46 Temperature 97.8 F 04/24/19 18:46 Pulse Rate 70 04/24/19 22:23 Respiratory Rate 20 04/24/19 22:23 Blood Pressure 217/58 04/24/19 22:23 O2 Sat by Pulse Oximetry 97 04/24/19 22:23 Oxygen Delivery Oxygen Delivery Nasal Cannula Procedures - Ultrasound-Other Narrative: Indication: Diffuse Abd tenderness and hx of cholelithiasis RUQ- Gallbladder visualized in transverse and saggital views. Quality of imaging obtained: good Wall Thickness: .27cm Width: 2.31cm Length: 5.41 Measurements within normal limits. 1 stone visualized in fundus, no evidence of obstruction. Quality of imaging obtained: good Interpretation: Normal study. 1 gall stone present, no evidence of obstruction, no evidence of inflammation Attending Physician interpreting: Dr. Helio Bentley, Resident: Sahara Edmonds, DO [X] Images saved to hard drive and uploaded to PACS Chest Pain - MDM Narrative Medical decision making narrative: 68F with severe epigastric pain that began approx 45min [employer] that she states started when she was on the toilet. She reports that she had eaten approx 3 hours earlier. Concern for pancreatitis, as she has a history of it in the past. Will obtain LFTs, CBC, BMP. Pt had MRI of Abd at outside facility earlier today, will obtain records. 1947: Records from outside facility indicate that patient has an ovoid lesion in the left pole of her kidney that does not fulfull the criteria for a simple cyst, and that a malignant neoplasm needs to be excluded by biopsy. Pt is not aware of results. Pain was treated with fentanyl and she reports resolution of epigastric pain. Bedside ultrasound demonstrated gallstone that was non- obstructing. Measurements were within normal limits - see procedure note for details. 3: Pt pain returned and she requested more pain medication. She was given an additional 75mcg of Fentanyl which she states did not really help her pain. 2339: Pt was given 10mg of Morphine. She states that she lives alone and if her pain comes back when she is at home there would not be anyone to help her. 0113: Spoke with Dr. Guardado, hospitalist, who was concerned for obstruction and requested CT of Abd/Pelvis before he agreed to admit her. Pt will be signed out to the night team - Dr. Kirsten Lakhani and Dr. Cornelio Abarca, please see their notes for results of the workup and disposition. - Medical Records Medical records reviewed: Yes I reviewed the patient's medical records. - Lab Data Lab results reviewed: Yes I reviewed the patient's lab results. Result diagrams: 04/24/19 19:14 04/24/19 19:14 Lab Results 04/24/19 04/24/19 04/24/19 Range/Units 19:14 19:14 19:14 WBC 16.9 H (4.3-11.1) K/mcL RBC 4.51 (3.82-4.97) M/mcL Hgb 12.5 (11.5-15.4) g/dL Hct 40.1 (35.3-44.9) % MCV 88.9 (83.0-100.0) fL MCH 27.7 L (28.0-33.3) pg MCHC 31.2 L (31.6-35.5) g/dL RDW 15.3 H (11.5-14.5) % Plt Count 192 (140-400) K/mcL MPV 13.6 H (9.4-12.4) fL Immature Gran % 0.5 (0-4) % Seg Neutrophils % 77.3 % Lymphocytes % 17.9 % Monocytes % 3.5 % Eosinophils % 0.6 % Basophils % 0.2 % Neutrophils # 13.1 H (1.6-8.9) K/mcL Lymphocytes # 3.0 (0.6-4.6) K/mcL Monocytes # 0.6 (0.0-1.3) K/mcL Eosinophils # 0.1 (0.0-0.6) K/mcL Basophils # 0.0 (0.0-0.2) K/mcL Sodium 135 L (136-145) mEq/L Potassium 4.4 (3.5-5.1) mEq/L Chloride 102 (98-107) mEq/L Carbon Dioxide 18 L (23-29) mEq/L BUN 23 (8-23) mg/dL Creatinine 0.92 (0.60-1.20) mg/dL Est GFR ( Amer) > 60 (> 60) Est GFR (Non-Af Amer) > 60 (> 60) BUN/Creatinine Ratio 25 (6-26) Glucose 279 H (70-105) mg/dL Calculated Osmolality 294 (280-300) Calcium 9.3 (8.6-10.3) mg/dL Total Bilirubin 0.3 (0.3-1.0) mg/dL Direct Bilirubin 0.0 (0.0-0.2) mg/dL Indirect Bilirubin 0.3 (0.0-1.2) mg/dL AST 20 (13-39) Units/L ALT 19 (7-52) Units/L Alkaline Phosphatase 132 H (34-104) Units/L Troponin I < 0.03 (< 0.04) ng/mL Serum Total Protein 7.4 (6.4-8.9) g/dL Albumin 4.1 (3.5-5.7) g/dL Globulin 3.3 (2.4-3.5) g/dL Albumin/Globulin Ratio 1.2 (1.1-2.2) Lipase 32 (11-82) Units/L - Radiology Data Radiology results reviewed: Yes I reviewed the patient's radiology results. Chest X-Ray 04/24/19 18:57 IMPRESSION: Cardiomegaly with pulmonary vascular congestion D/ / Ap Campos MD / Ap Campos MD Interpreting Provider: Ap Campos MD - EKG Data EKG attestation: Yes I reviewed and interpreted this EKG. EKG results narrative: Heart rate 73, rhythm sinus, axis all. Computer states the AR interval is shortened, however I do not believe the AR interval to be shortened it appears to be normal length, there is some artifact in the report which makes interpretation difficult and this may be the cause of the computers interpretation. Intervals appear to be within normal limits. There is less than [address] depression in leads V5, V6. When compared to previous EKG dated 08/08/19, the previous EKG shows NSR without any abnormalities.
[2019-04-24] MEDS: Nitroglycerin 0.4 MG TAB.SUBL SL PRN ×2 (19:19→19:39)
[2019-04-24] MEDS ORDERED: Isovue-370 500 ML BOTTLE IVP ONE (19:30)
[2019-04-24 19:36] LABS: Basophils % 0.2 %; Eosinophils # 0.1 K/mcL (0.0-0.6); Eosinophils % 0.6 %; Hematocrit 40.1 % (35.3-44.9); Hemoglobin 12.5 g/dL (11.5-15.4); Immature Granulocytes % 0.5 % (0-4); Lymphocytes % 17.9 %; Mean Corpuscular HGB Conc 31.2 g/dL (31.6-35.5); Mean Corpuscular Hemoglobin 27.7 pg (28.0-33.3); Mean Corpuscular Volume 88.9 fL (83.0-100.0); Mean Platelet Volume 13.6 fL (9.4-12.4); Monocytes # 0.6 K/mcL (0.0-1.3); Monocytes % 3.5 %; Neutrophils # 13.1 K/mcL (1.6-8.9); Platelet Count 192 K/mcL (140-400); Red Blood Count 4.51 M/mcL (3.82-4.97); Red Cell Distribution Width 15.3 % (11.5-14.5); Segmented Neutrophils % 77.3 %; White Blood Count 16.9 K/mcL (4.3-11.1)
[2019-04-24] MEDS ORDERED: Ondansetron ODT 4 MG TAB.RAPDIS SL ONE (19:41)
[2019-04-24] MEDS ORDERED: *HR* FentaNYL (PF) 100 MCG/2 ML VIAL IVP ONE ×2 (19:41→22:01)
[2019-04-24 19:54] LABS: Alanine Aminotransferase 19 Units/L (7-52); Albumin 4.1 g/dL (3.5-5.7); Albumin/Globulin Ratio 1.2 (1.1-2.2); Alkaline Phosphatase 132 Units/L (34-104); Aspartate Amino Transferase 20 Units/L (13-39); Bilirubin,Indirect 0.3 mg/dL (0.0-1.2); Bilirubin,Total 0.3 mg/dL (0.3-1.0); Globulin 3.3 g/dL (2.4-3.5); Lipase 32 Units/L (11-82); Total Protein 7.4 g/dL (6.4-8.9)
[2019-04-24 19:55] LABS: Troponin I < 0.03 ng/mL (< 0.04)
[2019-04-24 20:07] LABS: BUN/Creatinine Ratio 25 (6-26); Blood Urea Nitrogen 23 mg/dL (8-23); Calcium 9.3 mg/dL (8.6-10.3); Carbon Dioxide 18 mEq/L (23-29); Chloride 102 mEq/L (98-107); Glucose 279 mg/dL (70-105); Osmolality,Calculated 294 (280-300); Potassium 4.4 mEq/L (3.5-5.1); Sodium 135 mEq/L (136-145); eGFR For African Americans > 60 (> 60); eGFR For Non-African Americans > 60 (> 60)
[2019-04-24] MEDS ORDERED: Morphine Sulfate 2 MG/ML SYRINGE IVP ONE (23:24)
[2019-04-25] MEDS ORDERED: Isovue-370 500 ML BOTTLE IVP ONE (01:02)
[2019-04-25] MEDS ORDERED: *HR* Promethazine 25 MG/ML VIAL IVP ONE (01:14)
[2019-04-25] MEDS ORDERED: Piperacillin/Tazobactam 3.375 GM in 0.9 % Sodium Chloride Mini Bag 100 ML IVPB ONE (02:42)
[2019-04-25] MEDS ORDERED: 0.9 % Sodium Chloride 1,000 ML IVC SCH (02:45)
--- NOTE | 2019-04-25 02:47 | Emergency Department Note ---
Disposition Clinical Impression: Incarcerated hernia Abdominal pain Qualifiers: Abdominal location: epigastric Qualified Code(s): R10.13 - Epigastric pain Disposition: Admitted As Inpatient Condition: Fair Prescriptions: Hyoscyamine SL [Levsin SL] 0.125 mg SL Q4HR #12 tab.subl Time of Disposition: 05:28 General Adult HPI - General Chief complaint: ED Chest Pain Stated complaint: chest pain Time Seen by Provider: 04/24/19 18:46 Source: patient Mode of arrival: private vehicle Limitations: no limitations Nursing Notes Reviewed: Yes Vital Signs Reviewed: Yes - History of Present Illness HPI Narrative: Patient care endorsed at shift change from Dr. Bentley and Dr. Edmonds. Pendi ng: CT abdomen and pelvis. Please see their notes for intake history and physical as well as medical decision-making until shift change at 1 AM. Pending: CT abdomen pelvis with IV contrast. Pain Scale: 10 - Related Data Home Medications Medication Instructions Recorded Confirmed Gabapentin 800 mg PO TID 01/14/19 04/25/19 Glimepiride [Amaryl] 2 mg PO HS 01/14/19 04/25/19 Ipratropium/Albuterol Sulfate 1 puff IH QID 01/14/19 04/25/19 [Combivent Respimat 20-100 Mcg] Ipratropium/Albuterol Sulfate 3 ml IH TID PRN 01/14/19 04/25/19 [Iprat-Albut 0.5-3(2.5) mg/3 ml] Lisinopril [Zestril] 40 mg PO DAILY 01/14/19 04/25/19 Metformin HCl [Glucophage] 500 mg PO BID 01/14/19 04/25/19 Omeprazole [PriLOSEC] 40 mg PO DAILY 01/14/19 04/25/19 Red Yeast Rice 600 mg PO DAILY 01/14/19 04/25/19 Tiotropium [place] [Spiriva 2 puff IH DAILY 01/14/19 04/25/19 Respimat] Tramadol HCl [Ultram] 50 mg PO Q6H PRN 01/14/19 04/25/19 dilTIAZem HCl [Diltiazem 24Hr Cd] 360 mg PO DAILY 01/14/19 04/25/19 Aspirin [Lo-Dose Aspirin EC] 81 mg PO DAILY 01/15/19 04/25/19 Cholecalciferol (D-3) [Vitamin D] 1,000 unit PO DAILY 01/15/19 04/25/19 Cyanocobalamin (Vitamin B-12) 1,000 mcg PO DAILY 01/15/19 04/25/19 [Vitamin B-12] DiphenhydraMINE [Benadryl] 50 mg PO BID 01/15/19 04/25/19 Iron Amino Acid Chelate/B12/FA 1 cap PO DAILY 01/15/19 04/25/19 [Ferractiv Iron 27 mg Formula] Naproxen Sodium [Aleve] 220 mg PO HS 01/15/19 04/25/19 Previous Rx's Medication Instructions Recorded Doxycycline 100 mg PO Q12HR #5 capsule 01/17/19 Furosemide [Lasix] 40 mg PO DAILY #30 tablet 01/17/19 predniSONE [PredniSONE] 40 mg PO DAILY #3 tablet 01/17/19 Hyoscyamine SL [Levsin SL] 0.125 mg SL Q4HR #12 tab.subl 04/24/19 Allergies Allergy/AdvReac Type Severity Reaction Status Date / Time oxycodone [From Percocet] AdvReac See Verified 01/14/19 22:38 Comments Bieagai-Ibp-Keq Reductase AdvReac Muscle Pain Verified 01/14/19 22:38 Inhibitor [Statins] Past Medical History - Past Medical History Medical history: Reports: arthritis, asthma, cancer, CHF, COPD, coronary artery disease, diabetes, hyperlipidemia, hypertension, myocardial infarction, renal disease Surgical history: Reports: cancer surgery, hysterectomy, knee replacement - Social History Smoking Status: Former smoker Alcohol use: Reports: none Drug use: Reports: none Physical Exam - General Limitations: no limitations General appearance: alert, in no apparent distress Course Course Narrative: CT abdomen pelvis with IV contrast return concerning for small bowel obstruction secondary to substantial ventral hernia. I reread the report of the MRI abdo men with and without contrast (faxed from [facility]) which makes no mention about obstruction. I discussed again with the patient her symptoms. She had nausea, vomiting, and abdominal pain onset 6 PM last night. There is the possibility she had no obstruction when the MRI was performed yesterday morning. Patient states she has known about her hernia for the last 10 or so years. She has previously had intermittent abdominal pain where her hernia bulge becomes hard but this is typically short-lived and spontaneously resolving. Physical exam performed after sign out: Vital Signs Reviewed General: Patient is alert, oriented, and in mild distress-she appears uncomfortable and has the emesis bag nearby. Head: atraumatic, normocephalic Eye: normal appearance, PERRL, EOMI, no scleral icterus, no conjunctival injection ENT: mucous membranes moist, normal external ear exam Neck: normal inspection, trachea midline, full ROM Chest: normal inspection, symmetric chest rise Respiratory: Good respiratory effort. Bilateral breath sounds are clear without wheezing, crackles, or rhonchi. Cardiovascular: Regular rate and rhythm. No clicks, rubs, gallops, or murmors. Normal heart sounds. Abdomen: Obese. Bowel sounds present normoactive. Abdomen is soft. Periumbilical hernia present in the lower half of the umbilicus and is taught, tender, with slight ecchymosis. Remainder of abdomen is nontender. No guarding or rebound. Musculoskeletal: Spontaneously moving all extremities. Skin: warm, dry, intact. Neuro: GCS 15. No focal neurologic deficits observed. Psych: Patient's affect is appropriate for situation. I discussed the above with the on-call general surgeon, Dr. Lopez. Patient does have leukocytosis without left shift. We will begin Zosyn. Lactic acid is pending. We will begin IV maintenance fluids at [address] mL per [address] Will place NG tube. PAtient accepted for admission to surgical services. Chest X-Ray 04/24/19 18:57 IMPRESSION: Cardiomegaly with pulmonary vascular congestion D/ / Ap Campos MD / Ap Campos MD Interpreting Provider: Ap Campos MD Abdomen/Pelvis CT 04/25/19 01:02 IMPRESSION: There is obstruction of distal small bowel and transverse colon within a large ventral hernia in the mid lower abdomen. 5 cm heterogeneous indeterminate left adrenal mass is again seen. Follow-up recommended per prior report and listhesis RD been performed an outside institution. D/ / Esperanza Kennedy MD / Esperanza Kennedy MD Interpreting Provider: Esperanza Kennedy MD Vital Signs Temperature 97.8 F 04/24/19 18:46 Pulse Rate 74 04/24/19 18:46 Respiratory Rate 26 04/24/19 18:46 Blood Pressure 169/70 04/24/19 18:46 O2 Sat by Pulse Oximetry 99 04/24/19 18:46 Temperature 97.8 F 04/24/19 18:46 Pulse Rate 72 04/25/19 04:15 Respiratory Rate 19 04/25/19 04:15 Blood Pressure 177/74 04/25/19 04:15 O2 Sat by Pulse Oximetry 91 04/25/19 04:15 Oxygen Delivery Oxygen Delivery Nasal Cannula Medical Decision Making - Lab Data Result diagrams: 04/24/19 19:14 04/24/19 19:14 Lab Results 04/24/19 04/24/19 04/24/19 Range/Units 19:14 19:14 19:14 WBC 16.9 H (4.3-11.1) K/mcL RBC 4.51 (3.82-4.97) M/mcL Hgb 12.5 (11.5-15.4) g/dL Hct 40.1 (35.3-44.9) % MCV 88.9 (83.0-100.0) fL MCH 27.7 L (28.0-33.3) pg MCHC 31.2 L (31.6-35.5) g/dL RDW 15.3 H (11.5-14.5) % Plt Count 192 (140-400) K/mcL MPV 13.6 H (9.4-12.4) fL Immature Gran % 0.5 (0-4) % Seg Neutrophils % 77.3 % Lymphocytes % 17.9 % Monocytes % 3.5 % Eosinophils % 0.6 % Basophils % 0.2 % Neutrophils # 13.1 H (1.6-8.9) K/mcL Lymphocytes # 3.0 (0.6-4.6) K/mcL Monocytes # 0.6 (0.0-1.3) K/mcL Eosinophils # 0.1 (0.0-0.6) K/mcL Basophils # 0.0 (0.0-0.2) K/mcL Sodium 135 L (136-145) mEq/L Potassium 4.4 (3.5-5.1) mEq/L Chloride 102 (98-107) mEq/L Carbon Dioxide 18 L (23-29) mEq/L BUN 23 (8-23) mg/dL Creatinine 0.92 (0.60-1.20) mg/dL Est GFR ( Amer) > 60 (> 60) Est GFR (Non-Af Amer) > 60 (> 60) BUN/Creatinine Ratio 25 (6-26) Glucose 279 H (70-105) mg/dL Calculated Osmolality 294 (280-300) Lactic Acid (0.5-2.2) mmol/L Calcium 9.3 (8.6-10.3) mg/dL Total Bilirubin 0.3 (0.3-1.0) mg/dL Direct Bilirubin 0.0 (0.0-0.2) mg/dL Indirect Bilirubin 0.3 (0.0-1.2) mg/dL AST 20 (13-39) Units/L ALT 19 (7-52) Units/L Alkaline Phosphatase 132 H (34-104) Units/L Troponin I < 0.03 (< 0.04) ng/mL Serum Total Protein 7.4 (6.4-8.9) g/dL Albumin 4.1 (3.5-5.7) g/dL Globulin 3.3 (2.4-3.5) g/dL Albumin/Globulin Ratio 1.2 (1.1-2.2) Lipase 32 (11-82) Units/L 04/25/19 Range/Units 02:47 WBC (4.3-11.1) K/mcL RBC (3.82-4.97) M/mcL Hgb (11.5-15.4) g/dL Hct (35.3-44.9) % MCV (83.0-100.0) fL MCH (28.0-33.3) pg MCHC (31.6-35.5) g/dL RDW (11.5-14.5) % Plt Count (140-400) K/mcL MPV (9.4-12.4) fL Immature Gran % (0-4) % Seg Neutrophils % % Lymphocytes % % Monocytes % % Eosinophils % % Basophils % % Neutrophils # (1.6-8.9) K/mcL Lymphocytes # (0.6-4.6) K/mcL Monocytes # (0.0-1.3) K/mcL Eosinophils # (0.0-0.6) K/mcL Basophils # (0.0-0.2) K/mcL Sodium (136-145) mEq/L Potassium (3.5-5.1) mEq/L Chloride (98-107) mEq/L Carbon Dioxide (23-29) mEq/L BUN (8-23) mg/dL Creatinine (0.60-1.20) mg/dL Est GFR ( Amer) (> 60) Est GFR (Non-Af Amer) (> 60) BUN/Creatinine Ratio (6-26) Glucose (70-105) mg/dL Calculated Osmolality (280-300) Lactic Acid 0.8 (0.5-2.2) mmol/L Calcium (8.6-10.3) mg/dL Total Bilirubin (0.3-1.0) mg/dL Direct Bilirubin (0.0-0.2) mg/dL Indirect Bilirubin (0.0-1.2) mg/dL AST (13-39) Units/L ALT (7-52) Units/L Alkaline Phosphatase (34-104) Units/L Troponin I (< 0.04) ng/mL Serum Total Protein (6.4-8.9) g/dL Albumin (3.5-5.7) g/dL Globulin (2.4-3.5) g/dL Albumin/Globulin Ratio (1.1-2.2) Lipase (11-82) Units/L
[2019-04-25] MEDS ORDERED: *HR* HYDROmorphone (PF) 1 MG/ML SYRINGE IVP ONE (03:21)
[2019-04-25] MEDS: 0.9 % Sodium Chloride 1,000 ML IVC ONE ×2 (03:36→17:00)
--- NOTE | 2019-04-25 03:56 | Emergency Department Note ---
Disposition Clinical Impression: Incarcerated hernia Abdominal pain Qualifiers: Abdominal location: epigastric Qualified Code(s): R10.13 - Epigastric pain Disposition: Admitted As Inpatient Condition: Fair Prescriptions: Hyoscyamine SL [Levsin SL] 0.125 mg SL Q4HR #12 tab.subl Referrals: Henry Jerry DO [Primary Care Provider] - Domenica Miller,Dejuan Rincon [Non-Partnered Physician] - Forms: ED Satisfaction Letter Time of Disposition: 03:56 General Adult HPI - General Chief complaint: ED Chest Pain Stated complaint: chest pain Time Seen by Provider: 04/24/19 18:46 Source: patient Mode of arrival: private vehicle Limitations: no limitations - History of Present Illness Pain Scale: 10 - Related Data Home Medications Medication Instructions Recorded Confirmed Gabapentin 800 mg PO TID 01/14/19 04/25/19 Glimepiride [Amaryl] 2 mg PO HS 01/14/19 04/25/19 Ipratropium/Albuterol Sulfate 1 puff IH QID 01/14/19 04/25/19 [Combivent Respimat 20-100 Mcg] Ipratropium/Albuterol Sulfate 3 ml IH TID PRN 01/14/19 04/25/19 [Iprat-Albut 0.5-3(2.5) mg/3 ml] Lisinopril [Zestril] 40 mg PO DAILY 01/14/19 04/25/19 Metformin HCl [Glucophage] 500 mg PO BID 01/14/19 04/25/19 Omeprazole [PriLOSEC] 40 mg PO DAILY 01/14/19 04/25/19 Red Yeast Rice 600 mg PO DAILY 01/14/19 04/25/19 Tiotropium [place] [Spiriva 2 puff IH DAILY 01/14/19 04/25/19 Respimat] Tramadol HCl [Ultram] 50 mg PO Q6H PRN 01/14/19 04/25/19 dilTIAZem HCl [Diltiazem 24Hr Cd] 360 mg PO DAILY 01/14/19 04/25/19 Aspirin [Lo-Dose Aspirin EC] 81 mg PO DAILY 01/15/19 04/25/19 Cholecalciferol (D-3) [Vitamin D] 1,000 unit PO DAILY 01/15/19 04/25/19 Cyanocobalamin (Vitamin B-12) 1,000 mcg PO DAILY 01/15/19 04/25/19 [Vitamin B-12] DiphenhydraMINE [Benadryl] 50 mg PO BID 01/15/19 04/25/19 Iron Amino Acid Chelate/B12/FA 1 cap PO DAILY 01/15/19 04/25/19 [Ferractiv Iron 27 mg Formula] Naproxen Sodium [Aleve] 220 mg PO HS 01/15/19 04/25/19 Previous Rx's Medication Instructions Recorded Doxycycline 100 mg PO Q12HR #5 capsule 01/17/19 Furosemide [Lasix] 40 mg PO DAILY #30 tablet 01/17/19 predniSONE [PredniSONE] 40 mg PO DAILY #3 tablet 01/17/19 Hyoscyamine SL [Levsin SL] 0.125 mg SL Q4HR #12 tab.subl 04/24/19 Allergies Allergy/AdvReac Type Severity Reaction Status Date / Time oxycodone [From Percocet] AdvReac See Verified 01/14/19 22:38 Comments [place]m-Hoe-Xel Reductase AdvReac Muscle Pain Verified 01/14/19 22:38 Inhibitor [Statins] Past Medical History - Past Medical History Medical history: Reports: arthritis, asthma, cancer, CHF, COPD, coronary artery disease, diabetes, hyperlipidemia, hypertension, myocardial infarction, renal disease Surgical history: Reports: cancer surgery, hysterectomy, knee replacement - Social History Smoking Status: Former smoker Alcohol use: Reports: none Drug use: Reports: none Physical Exam - General Limitations: no limitations General appearance: alert, in no apparent distress Course Vital Signs Temperature 97.8 F 04/24/19 18:46 Pulse Rate 74 04/24/19 18:46 Respiratory Rate 26 04/24/19 18:46 Blood Pressure 169/70 04/24/19 18:46 O2 Sat by Pulse Oximetry 99 04/24/19 18:46 Temperature 97.8 F 04/24/19 18:46 Pulse Rate 74 04/25/19 02:47 Respiratory Rate 16 04/25/19 02:47 Blood Pressure 156/55 04/25/19 02:47 O2 Sat by Pulse Oximetry 98 04/25/19 02:47 Oxygen Delivery Oxygen Delivery Room Air Medical Decision Making - Lab Data Result diagrams: 04/24/19 19:14 04/24/19 19:14 Lab Results 04/24/19 04/24/19 04/24/19 Range/Units 19:14 19:14 19:14 WBC 16.9 H (4.3-11.1) K/mcL RBC 4.51 (3.82-4.97) M/mcL Hgb 12.5 (11.5-15.4) g/dL Hct 40.1 (35.3-44.9) % MCV 88.9 (83.0-100.0) fL MCH 27.7 L (28.0-33.3) pg MCHC 31.2 L (31.6-35.5) g/dL RDW 15.3 H (11.5-14.5) % Plt Count 192 (140-400) K/mcL MPV 13.6 H (9.4-12.4) fL Immature Gran % 0.5 (0-4) % Seg Neutrophils % 77.3 % Lymphocytes % 17.9 % Monocytes % 3.5 % Eosinophils % 0.6 % Basophils % 0.2 % Neutrophils # 13.1 H (1.6-8.9) K/mcL Lymphocytes # 3.0 (0.6-4.6) K/mcL Monocytes # 0.6 (0.0-1.3) K/mcL Eosinophils # 0.1 (0.0-0.6) K/mcL Basophils # 0.0 (0.0-0.2) K/mcL Sodium 135 L (136-145) mEq/L Potassium 4.4 (3.5-5.1) mEq/L Chloride 102 (98-107) mEq/L Carbon Dioxide 18 L (23-29) mEq/L BUN 23 (8-23) mg/dL Creatinine 0.92 (0.60-1.20) mg/dL Est GFR ( Amer) > 60 (> 60) Est GFR (Non-Af Amer) > 60 (> 60) BUN/Creatinine Ratio 25 (6-26) Glucose 279 H (70-105) mg/dL Calculated Osmolality 294 (280-300) Lactic Acid (0.5-2.2) mmol/L Calcium 9.3 (8.6-10.3) mg/dL Total Bilirubin 0.3 (0.3-1.0) mg/dL Direct Bilirubin 0.0 (0.0-0.2) mg/dL Indirect Bilirubin 0.3 (0.0-1.2) mg/dL AST 20 (13-39) Units/L ALT 19 (7-52) Units/L Alkaline Phosphatase 132 H (34-104) Units/L Troponin I < 0.03 (< 0.04) ng/mL Serum Total Protein 7.4 (6.4-8.9) g/dL Albumin 4.1 (3.5-5.7) g/dL Globulin 3.3 (2.4-3.5) g/dL Albumin/Globulin Ratio 1.2 (1.1-2.2) Lipase 32 (11-82) Units/L / Range/Units 02:47 WBC (4.3-11.1) K/mcL RBC (3.82-4.97) M/mcL Hgb (11.5-15.4) g/dL Hct (35.3-44.9) % MCV (83.0-100.0) fL MCH (28.0-33.3) pg MCHC (31.6-35.5) g/dL RDW (11.5-14.5) % Plt Count (140-400) K/mcL MPV (9.4-12.4) fL Immature Gran % (0-4) % Seg Neutrophils % % Lymphocytes % % Monocytes % % Eosinophils % % Basophils % % Neutrophils # (1.6-8.9) K/mcL Lymphocytes # (0.6-4.6) K/mcL Monocytes # (0.0-1.3) K/mcL Eosinophils # (0.0-0.6) K/mcL Basophils # (0.0-0.2) K/mcL Sodium (136-145) mEq/L Potassium (3.5-5.1) mEq/L Chloride (98-107) mEq/L Carbon Dioxide (23-29) mEq/L BUN (8-23) mg/dL Creatinine (0.60-1.20) mg/dL Est GFR ( Amer) (> 60) Est GFR (Non-Af Amer) (> 60) BUN/Creatinine Ratio (6-26) Glucose (70-105) mg/dL Calculated Osmolality (280-300) Lactic Acid 0.8 (0.5-2.2) mmol/L Calcium (8.6-10.3) mg/dL Total Bilirubin (0.3-1.0) mg/dL Direct Bilirubin (0.0-0.2) mg/dL Indirect Bilirubin (0.0-1.2) mg/dL AST (13-39) Units/L ALT (7-52) Units/L Alkaline Phosphatase (34-104) Units/L Troponin I (< 0.04) ng/mL Serum Total Protein (6.4-8.9) g/dL Albumin (3.5-5.7) g/dL Globulin (2.4-3.5) g/dL Albumin/Globulin Ratio (1.1-2.2) Lipase (11-82) Units/L Attestation Statement - Attestation Attestation: I reviewed the residents documentation and agree with the residents assessment and plan of care. I have personally had face to face time with the patient. (Brief History, Brief Exam, and MDM) I personally supervised and was present for the sorenson/critical portions of the following procedures completed by the resident: recieved sign out from Dr. Bentley/Grey 68 year old female presenst to the ED with complaints of epigstric pain tht radiates into her back and initially seen for possible chest pain complaint and rule out ACS. Jacob howver has also been experincin increassed nause and vomitting and intractable pain today and most recently had an MRI of the abdomen with pelvis to evalaute a adrenal mass earlier in the day. Jacob also has a history of a ventral hernia that has been chornic and wihtout issues but upon re-examination of jacob it appears she states that it has been causing more pain and had been becoming more hard in nature over the past few days and that this is the hardest that it has been. Jacob appears to have a ventral hernia arund the umbilica area that is dificult to reduce and painful on palpitation and distended with rock like nature to the area. Adrian vomitting is worsening at bedisde and pain has been managed with fentyl and morphine. Myself and my reisdnet have attempted to reduce the hernia but because of the size and mild ecchymosis with hardened nature we are concerned for incarcerated hernia which has orherwise been confirmed for small bowel obstruction on CT but does not mention possibility of incarceration although physical examination is concerng for it. We have consulted surgery and Dr. Lopez will see patinet at bedside for further evaluation.
[2019-04-25] MEDS ORDERED: *HR* Metoprolol 5 MG/5 ML VIAL IVP PRN ×2 (06:21→19:10)
[2019-04-25] MEDS ORDERED: Ondansetron 4 MG/2 ML VIAL IVP PRN ×2 (06:23→19:10)
[2019-04-25] MEDS ORDERED: Morphine Sulfate 2 MG/ML SYRINGE IVP PRN ×2 (06:23→19:10)
[2019-04-25] MEDS ORDERED: Pantoprazole 40 MG VIAL IVP SCH (06:45)
[2019-04-25] MEDS: *HR* Heparin 5,000 UNIT/ML VIAL SQ SCH ×2 (06:50→18:46)
[2019-04-25] MEDS: D5% in 0.9% NACL 1,000 ML IVC SCH ×3 (06:50→18:02)
[2019-04-25 06:53] LABS: Basophils # 0.1 K/mcL (0.0-0.2); Basophils % 0.3 %; Hematocrit 43.3 % (35.3-44.9); Hemoglobin 13.4 g/dL (11.5-15.4); Immature Granulocytes % 0.6 % (0-4); Lymphocytes # 3.4 K/mcL (0.6-4.6); Mean Corpuscular HGB Conc 30.9 g/dL (31.6-35.5); Mean Corpuscular Hemoglobin 27.8 pg (28.0-33.3); Mean Corpuscular Volume 89.8 fL (83.0-100.0); Mean Platelet Volume 13.5 fL (9.4-12.4); Monocytes # 0.7 K/mcL (0.0-1.3); Monocytes % 3.5 %; Neutrophils # 15.7 K/mcL (1.6-8.9); Platelet Count 224 K/mcL (140-400); Red Blood Count 4.82 M/mcL (3.82-4.97); Red Cell Distribution Width 15.4 % (11.5-14.5); Segmented Neutrophils % 78.6 %; White Blood Count 19.9 K/mcL (4.3-11.1)
[2019-04-25 07:15] LABS: BUN/Creatinine Ratio 26 (6-26); Blood Urea Nitrogen 20 mg/dL (8-23); Calcium 8.9 mg/dL (8.6-10.3); Carbon Dioxide 25 mEq/L (23-29); Chloride 101 mEq/L (98-107); Glucose 269 mg/dL (70-105); Magnesium 1.7 mg/dL (1.6-2.6); Osmolality,Calculated 298 (280-300); Phosphorous 5.1 mg/dL (2.7-4.5); Potassium 4.5 mEq/L (3.5-5.1); Sodium 138 mEq/L (136-145); eGFR For African Americans > 60 (> 60); eGFR For Non-African Americans > 60 (> 60)
[2019-04-25] MEDS ORDERED: Morphine Sulfate 2 MG/ML SYRINGE IVP STA (08:07)
--- NOTE | 2019-04-25 08:16 | Acute Care Surgery H&P ---
Date of Encounter: 04/25/19 Time of Encounter: 08:00 Assessment and Plan (1) Incarcerated hernia Current Visit: Yes Status: Acute The assessment and plan as outlined above was discussed with the patient and/or family members who expressed understanding and agreement. All questions were answered. The patient will require exploratory laparotomy. There is a chance that the incarcerated bowel is necrotic. The patient complains bitterly of diffuse abdom inal pain, however, she does not have peritoneal signs. We will plan reduction of incarcerated hernia and repair of hiatal hernia. History of Present Illness Chief complaint: Abdominal pain HPI: Ms. Echevarria is a 68 year old female The patient developed abdominal pain yesterday that worsened throughout the day and she sought evaluation in the emergency room. She was originally evaluated for chest pain secondary to significant cardiac history. Chest pain workup was negative, however, she developed severe nausea and vomiting. CAT scan of the abdomen demonstrated a chronic umbilical hernia with herniation of abdominal contents well and the patient's pannus. There appears to be small bowel obstruction based this level. She was admitted to the hospital with a nasogastric tube was placed. She has a high-volume of nasogastric tube output. She now presents for surgical evaluation for management of incarcerated ventral hernia. Overall condition is complicated by profound morbid obesity as well as significant cardiac history Past Med Surg Social Fam HX - Past Medical History Medical history: arthritis, asthma, cancer, CHF, COPD, coronary artery disease, diabetes, hyperlipidemia, hypertension, myocardial infarction, renal disease Additional medical history: urterine CA "probably like 10 years ago" - Past Surgical History Surgical History: cancer surgery, hysterectomy, knee replacement - Social History Smoking Status: Former smoker Alcohol use: none Drug use: none - Family History Daughter Living Status: Still Living Hx Family Cardiac Disorders: Yes (HTN) Hx Family Respiratory Disorders: No Hx Family Cancer: No Hx Family GI Disorders: No Hx Family Endocrine Disorder: No Hx Family Neuromuscular Disorders: No Hx Family Neurologic Disorders: No Hx Family HEENT Disorders: No Hx Family Autoimmune Disorders: No Medications and Allergies Gabapentin 800 mg PO TID 01/14/19 [History] Glimepiride [Amaryl] 2 mg PO HS 01/14/19 [History] Ipratropium/Albuterol Sulfate [Combivent Respimat 20-100 Mcg] 1 puff IH QID 01/14/19 [History] Ipratropium/Albuterol Sulfate [Iprat-Albut 0.5-3(2.5) mg/3 ml] 3 ml IH TID PRN 01/14/19 [History] Lisinopril [Zestril] 40 mg PO DAILY 01/14/19 [History] Metformin HCl [Glucophage] 500 mg PO BID 01/14/19 [History] Omeprazole [PriLOSEC] 40 mg PO DAILY 01/14/19 [History] Red Yeast Rice 600 mg PO DAILY 01/14/19 [History] Tiotropium [place] [Spiriva Respimat] 2 puff IH DAILY 01/14/19 [History] Tramadol HCl [Ultram] 50 mg PO Q6H PRN 01/14/19 [History] dilTIAZem HCl [Diltiazem 24Hr Cd] 360 mg PO DAILY 01/14/19 [History] Aspirin [Lo-Dose Aspirin EC] 81 mg PO DAILY 01/15/19 [History] Cholecalciferol (D-3) [Vitamin D] 1,000 unit PO DAILY 01/15/19 [History] Cyanocobalamin (Vitamin B-12) [Vitamin B-12] 1,000 mcg PO DAILY 01/15/19 [History] DiphenhydraMINE [Benadryl] 50 mg PO BID 01/15/19 [History] Iron Amino Acid Chelate/B12/FA [Ferractiv Iron 27 mg Formula] 1 cap PO DAILY 01/15/19 [History] Naproxen Sodium [Aleve] 220 mg PO HS 01/15/19 [History] Doxycycline 100 mg PO Q12HR #5 capsule 01/17/19 [Rx] Furosemide [Lasix] 40 mg PO DAILY #30 tablet 01/17/19 [Rx] predniSONE [PredniSONE] 40 mg PO DAILY #3 tablet 01/17/19 [Rx] Hyoscyamine SL [Levsin SL] 0.125 mg SL Q4HR #12 tab.subl 04/24/19 [Rx] Allergy/AdvReac Type Severity Reaction Status Date / Time oxycodone [From Percocet] AdvReac See Verified 01/14/19 22:38 Comments Ncvinnr-Jqi-Ygf Reductase AdvReac Muscle Pain Verified 01/14/19 22:38 Inhibitor [Statins] Review of Systems All systems PM: The remainder of the systems were reviewed and are negative General Surgery Exam Initial Vital Signs Temp Pulse Resp BP Pulse Ox 97.8 F 74 26 169/70 99 04/24/19 18:46 04/24/19 18:46 04/24/19 18:46 04/24/19 18:46 04/24/19 18:46 - General physical appearance well developed, moderate distress, moderate pain, obese (Morbid obesity) - Neck no masses, no bruits, trachea midline, no lymphadectomy, no venous distension, other (Short thick neck) - Respiratory other (Decreased air motion secondary to profound morbid obesity) rales: bilateral - Cardiovascular Cardiovascular exam: Present: RRR, no murmurs/rubs/gallops - Abdomen Abdomen general surgery: Present: tender Abdominal Tenderness: Present: diffusely Hernia: Present: umbilical (Incarcerated intestine just below the skin level extending into the pannus from the level of the umbilicus) - Neurologic Present: CN 2-12 grossly intact, normal coordination, normal sensation - Psychiatric Psychiatric general surgery: Present: appropriate, oriented to person, oriented to place, oriented to time, speech is normal, memory intact Results - Labs 04/25/19 06:42 04/25/19 06:42 Abnormal lab results WBC 19.9 K/mcL (4.3-11.1) H 04/25/19 06:42 MCH 27.8 pg (28.0-33.3) L 04/25/19 06:42 MCHC 30.9 g/dL (31.6-35.5) L 04/25/19 06:42 RDW 15.4 % (11.5-14.5) H 04/25/19 06:42 MPV 13.5 fL (9.4-12.4) H 04/25/19 06:42 Neutrophils # 15.7 K/mcL (1.6-8.9) H 04/25/19 06:42 Sodium 135 mEq/L (136-145) L 04/24/19 19:14 Carbon Dioxide 18 mEq/L (23-29) L 04/24/19 19:14 Glucose 269 mg/dL (70-105) H 04/25/19 06:42 Phosphorus 5.1 mg/dL (2.7-4.5) H 04/25/19 06:42 Alkaline Phosphatase 132 Units/L (34-104) H 04/24/19 19:14 Diabetes panel 04/24/19 04/24/19 04/25/19 Range/Units 19:14 19:14 06:42 Sodium 135 L 138 (136-145) mEq/L Potassium 4.4 4.5 (3.5-5.1) mEq/L Chloride 102 101 (98-107) mEq/L Carbon Dioxide 18 L 25 (23-29) mEq/L BUN 23 20 (8-23) mg/dL Creatinine 0.92 0.78 (0.60-1.20) mg/dL Glucose 279 H 269 H (70-105) mg/dL Calcium 9.3 8.9 (8.6-10.3) mg/dL AST 20 (13-39) Units/L ALT 19 (7-52) Units/L Alkaline Phosphatase 132 H (34-104) Units/L Albumin 4.1 (3.5-5.7) g/dL Calcium panel 04/24/19 04/24/19 04/25/19 Range/Units 19:14 19:14 06:42 Calcium 9.3 8.9 (8.6-10.3) mg/dL Phosphorus 5.1 H (2.7-4.5) mg/dL Albumin 4.1 (3.5-5.7) g/dL Pituitary panel 04/24/19 04/25/19 Range/Units 19:14 06:42 Sodium 135 L 138 (136-145) mEq/L Potassium 4.4 4.5 (3.5-5.1) mEq/L Chloride 102 101 (98-107) mEq/L Carbon Dioxide 18 L 25 (23-29) mEq/L BUN 23 20 (8-23) mg/dL Creatinine 0.92 0.78 (0.60-1.20) mg/dL Glucose 279 H 269 H (70-105) mg/dL Calcium 9.3 8.9 (8.6-10.3) mg/dL Adrenal panel 04/24/19 04/24/19 04/25/19 Range/Units 19:14 19:14 06:42 Sodium 135 L 138 (136-145) mEq/L Potassium 4.4 4.5 (3.5-5.1) mEq/L Chloride 102 101 (98-107) mEq/L Carbon Dioxide 18 L 25 (23-29) mEq/L BUN 23 20 (8-23) mg/dL Creatinine 0.92 0.78 (0.60-1.20) mg/dL Glucose 279 H 269 H (70-105) mg/dL Calcium 9.3 8.9 (8.6-10.3) mg/dL Total Bilirubin 0.3 (0.3-1.0) mg/dL AST 20 (13-39) Units/L ALT 19 (7-52) Units/L Alkaline Phosphatase 132 H (34-104) Units/L Albumin 4.1 (3.5-5.7) g/dL All other labs normal. - Imaging CT scan - abdomen: image reviewed (I personally reviewed the CAT scan of the abdomen. She has an incarcerated umbilical hernia with abdominal contents extending well into the pannus)
--- NOTE | 2019-04-25 09:33 | Anesthesia Evaluation PreOp ---
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 Any Significant HX Other Medical History: Renal, Diabetes Type II, Other (bowel obstruction from hernia) Anesthesia History: No Prior Anesthetic Complications, Past Anesthesia (hyst, tka) : No Alcohol Use: none Drug use: none Medications and Allergies Gabapentin 800 mg PO TID 01/14/19 [History] Glimepiride [Amaryl] 2 mg PO HS 01/14/19 [History] Ipratropium/Albuterol Sulfate [Combivent Respimat 20-100 Mcg] 1 puff IH QID 01/14/19 [History] Ipratropium/Albuterol Sulfate [Iprat-Albut 0.5-3(2.5) mg/3 ml] 3 ml IH TID PRN 01/14/19 [History] Lisinopril [Zestril] 40 mg PO DAILY 01/14/19 [History] Metformin HCl [Glucophage] 500 mg PO BID 01/14/19 [History] Omeprazole [PriLOSEC] 40 mg PO DAILY 01/14/19 [History] Red Yeast Rice 600 mg PO DAILY 01/14/19 [History] Tiotropium [place] [Spiriva Respimat] 2 puff IH DAILY 01/14/19 [History] Tramadol HCl [Ultram] 50 mg PO Q6H PRN 01/14/19 [History] dilTIAZem HCl [Diltiazem 24Hr Cd] 360 mg PO DAILY 01/14/19 [History] Aspirin [Lo-Dose Aspirin EC] 81 mg PO DAILY 01/15/19 [History] Cholecalciferol (D-3) [Vitamin D] 1,000 unit PO DAILY 01/15/19 [History] Cyanocobalamin (Vitamin B-12) [Vitamin B-12] 1,000 mcg PO DAILY 01/15/19 [History] DiphenhydraMINE [Benadryl] 50 mg PO BID 01/15/19 [History] Iron Amino Acid Chelate/B12/FA [Ferractiv Iron 27 mg Formula] 1 cap PO DAILY 01/15/19 [History] Naproxen Sodium [Aleve] 220 mg PO HS 01/15/19 [History] Doxycycline 100 mg PO Q12HR #5 capsule 01/17/19 [Rx] Furosemide [Lasix] 40 mg PO DAILY #30 tablet 01/17/19 [Rx] predniSONE [PredniSONE] 40 mg PO DAILY #3 tablet 01/17/19 [Rx] Hyoscyamine SL [Levsin SL] 0.125 mg SL Q4HR #12 tab.subl 04/24/19 [Rx] Allergy/AdvReac Type Severity Reaction Status Date / Time oxycodone [From Percocet] AdvReac See Verified 01/14/19 22:38 Comments Fspdkmh-Bet-Njz Reductase AdvReac Muscle Pain Verified 01/14/19 22:38 Inhibitor [Statins] - Meds/Allergy Pre-op Review Medications Reviewed: Yes Allergies Reviewed: Yes Beta Blockers on Current Med List: No Anesthesia Results - Labs 04/25/19 06:42 04/25/19 06:42 - Imaging EKG: report reviewed Chest x-ray: report reviewed Anesthesia Exam Vital Signs/O2 Sat, Most Current Temp Pulse Resp BP Pulse Ox 97.7 F 63 18 128/73 93 04/25/19 07:22 04/25/19 07:22 04/25/19 07:22 04/25/19 07:22 04/25/19 07:22 - HEENT Pupil (Motor): Pupils equal, EOMI Mallampati: II Teeth: Poor dentition Oral Opening: Greater than 3 - BOOKSTORE CLERK LOC: Oriented BOOKSTORE CLERK Motor: Normal RUE, Normal LUE, Normal RLE, Normal LLE, Normal Face BOOKSTORE CLERK Sensory: Normal: RUE, LUE, RLE, LLE, Face - Cardiac Rhythm: Regular Murmur: None JVD: No - Pulmonary Breath Sounds: bilateral Clear Anesthesia Assess/Plan ASA Score: 4 Level of consciousness: Cooperative Anesthetic Plan: General Monitoring Plan: Standard Monitors Recovery Plan: PACU
[2019-04-25] MEDS ORDERED: CefOXitin 1,000 MG VIAL ONE ×3 (09:56→11:56)
[2019-04-25] MEDS ORDERED: cefOXitin 2,000 MG in Water for inj. (sterile) 20 ML IVP ONE (09:56)
[2019-04-25] MEDS ORDERED: *HR* Propofol 200 MG/20 ML VIAL IVP ONE (09:57)
[2019-04-25] MEDS ORDERED: *HR* FentaNYL (PF) 100 MCG/2 ML VIAL ONE (09:57)
[2019-04-25] MEDS ORDERED: *HR* Etomidate 40 MG/20 ML VIAL IVP ONE (09:59)
[2019-04-25] MEDS ORDERED: CefOXitin 2,000 MG VIAL ONE ×2 (10:10→11:58)
--- NOTE | 2019-04-25 10:24 | Electrocardiograph Report ---
[facility] Test Date: 2019-04-24 Pat Name: Lauren Echevarria Department: [id number] Room: 3A23 Gender: F Lead Sustainability Specialist: : [id number] Requested By: Sahara Edmonds Order Number: [id number] Reading MD: Raudel Graves Measurements Intervals [place] Rate: 73 P: 47 CT: 32 QRS: 5 QRSD: 95 T: 55 QT: 398 QTc: 439 Interpretive Statements Sinus rhythm Short CT interval Minimal ST depression, lateral leads Electronically Signed On 04-25-2019 10:22:52 EDT by Raudel Graves
[2019-04-25] MEDS ORDERED: EPHEDrine 50 MG/ML VIAL ONE (10:35)
[2019-04-25] MEDS ORDERED: Albumin Human 5% 0 GM/0 ML VIAL ONE (10:43)
[2019-04-25] MEDS ORDERED: *HR* Phenylephrine 10 MG/ML VIAL ONE (10:43)
[2019-04-25] MEDS ORDERED: Heparin 1,000 UNITS/500 mL 500 ML ONE ×3 (11:19→11:48)
[2019-04-25] MEDS ORDERED: EPINEPHrine 1 MG/ML VIAL ONE (11:32)
[2019-04-25 11:35] LABS: ABG Base Excess -14 mEq/L (-2 to 3); ABG Chloride 107 mEq/L (98-107); ABG Glucose 263 mg/dL (60-95); ABG HCO3 14 mEq/L (21-27); ABG Ionized Calcium 1.17 mmol/L (1.15-1.35); ABG Oxygen Saturation 100 % (95-98); ABG PCO2 36 mmHg (35-45); ABG PH 7.19 pH Units (7.32-7.45); ABG PO2 353 mmHg (85-104); ABG TCO2 15 mEq/L (20-26)
[2019-04-25] MEDS ORDERED: Sodium Bicarbonate 50 MEQ/50 ML VIAL ONE ×3 (11:39→12:42)
[2019-04-25] MEDS ORDERED: Albumin Human 5% 25.0 GM/500 ML VIAL ONE (11:39)
[2019-04-25 11:54] LABS: ABG Base Excess -8 mEq/L (-2 to 3); ABG Chloride 107 mEq/L (98-107); ABG Glucose 219 mg/dL (60-95); ABG HCO3 19 mEq/L (21-27); ABG Ionized Calcium 1.09 mmol/L (1.15-1.35); ABG Oxygen Saturation 100 % (95-98); ABG PCO2 44 mmHg (35-45); ABG PH 7.25 pH Units (7.32-7.45); ABG PO2 458 mmHg (85-104); ABG TCO2 21 mEq/L (20-26)
[2019-04-25] MEDS ORDERED: Calcium Gluconate 1,000 MG/10 ML VIAL ONE (11:54)
[2019-04-25] MEDS ORDERED: Piperacillin/Tazobactam 3.375 GM in 0.9 % Sodium Chloride Mini Bag 100 ML IVPB SCH ×2 (12:00→15:00)
--- NOTE | 2019-04-25 12:02 | Anesthesia Procedures ---
Date of Encounter: 04/25/19 Time of Encounter: 11:30 Procedures: Anesthesia - Arterial Line Consent obtained: written consent Time out performed: Yes Size (Gauge): 20 Length (inches): 1 3/4 Technique Used: guide wire technique Post-Procedure: line taped into place, dry sterile dressing placed Patient tolerated procedure: well, no complications Complications: none Site: Radial L Vitals: see anesthesia record Comments: performed during case, under anesthesia, per surgeon request
[2019-04-25 12:22] LABS: ABG Base Excess -5 mEq/L (-2 to 3); ABG Chloride 106 mEq/L (98-107); ABG Glucose 185 mg/dL (60-95); ABG HCO3 21 mEq/L (21-27); ABG Ionized Calcium 1.27 mmol/L (1.15-1.35); ABG Oxygen Saturation 100 % (95-98); ABG PCO2 44 mmHg (35-45); ABG PH 7.29 pH Units (7.32-7.45); ABG PO2 470 mmHg (85-104); ABG TCO2 23 mEq/L (20-26)
--- NOTE | 2019-04-25 12:46 | Anesthesia Procedures ---
Date of Encounter: 04/25/19 Time of Encounter: 11:00 Procedures: Anesthesia - Central Line Placement Right IJ Patient placed on monitor/pulse ox: Yes MD prep: mask, gown, gloves Central line prep: Povidone-Iodine 1%, sterile drapes applied Ultrasound used for placement: Yes Technique: Seldinger Lumen Inserted: triple Size / Length: 7 Fr / 16 cm Post procedure: sutured in place, good blood return, all ports aspirated, flushed, capped, sterile dressing applied Patient tolerated procedure: well Complications: none
[2019-04-25] MEDS ORDERED: *HR* Midazolam HCl 2 MG/2 ML VIAL ONE (13:03)
--- NOTE | 2019-04-25 13:10 | Operative Note ---
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 The abdomen was prepped and draped in sterile fashion utilizing ChloraPrep and standard draping timeout was taken and patient was identified. I made a vertical midline incision around the hernia sac and dissected down to the neck of the hernia sac. The hernia sac was opened. It was immediately apparent that there was necrotic colon and necrotic small bowel. The area of necrosis of the colon and small bowel was both above and below the fascia. There was free spillage of stool from colon perforation secondary to ischemic necrosis there was pus and stool in the abdomen. I resected the umbilicus and identified the proximal extent of bowel necrosis. The small bowel was divided at this point with ADRIANA. I then found the distal extent of necrosis and divided the colon on the left side of the middle colic artery. All the tissue between these 2 staple lines was ischemic and necrotic. The colon had perforated. I would estimate 100 cm of small bowel and an extended right hemicolectomy. I divided the mesentery between clamps and hemostatic ligatures. At this point the patient became hypotensive and required pressor agents. Total blood loss 100 mL. The patient quickly stabilized and pressors were weaned off. I irrigated the abdomen with copious amounts of antibiotic containing solution. At this point in the operation the patient's systolic blood pressure was 120 and she was off pressor agent. I decided to go ahead and mature the ileostomy and left-sided mucous fistula. The abdomen was irrigated with copious amounts of antibiotic containing solution. The midline fascia was closed with interrupted 0 Nurolon. The patient had profound morbid obesity. I left a Alireza-Srivastava drain in the area where the previous hernia had displaced the subcutaneous tissues. Skin was closed with interrupted Vicryl and groups of katelyn with iodoform an. The wound is considered fully contaminated with stool and pus. The mucous fistula was brought out in the left midabdomen. I matured the mucous fistula with interrupted 3-0 Vicryl. The ileostomy was brought out in the right mid abdomen. Both the ileostomy and the colon were well vascularized. The ileostomy was matured with interrupted 3-0 Vicryl 3-point stitches. Both cava excellent technical result. The patient was left intubated and moved to the intensive care unit for further therapy.
[2019-04-25] MEDS ORDERED: 0.9 % Sodium Chloride 1,000 ML ONE ×2 (13:16→13:45)
[2019-04-25] MEDS ORDERED: Norepinephrine 4 MG in 0.9 % Sodium Chloride 250 ML IVC SCH (13:45)
[2019-04-25] MEDS ORDERED: FentaNYL (PF) 1,000 MCG in 0.9 % Sodium Chloride 80 ML IVC SCH (14:00)
[2019-04-25] MEDS ORDERED: Fluconazole 400 MG/200 ML 400 MG/200 ML BAG IVPB SCH (14:04)
--- NOTE | 2019-04-25 14:21 | Pulmonology Consult Note ---
<Lucinda Herrera - Last Filed: 04/25/19 17:35> Date of Encounter: 04/25/19 Time of Encounter: 17:46 Assessment and Plan (1) Incarcerated hernia Current Visit: Yes Status: Acute Today, patient went to surgery for incarcerated ventral hernia with bowel obstruction. -During surgery, it was found there was a large area of ischemic necrosis pr esent -Approximately one meter of ileum was removed and patient received an extended right hemicolectomy, an ileostomy, and mucous fistula -Bowel showed perforation secondary to necrosis -Surgery will continue to manage. -Patient is on fluconazole, Zosyn, and vancomycin to cover possible intraabdomi nal infection -Continue sepsis protocols (2) Sepsis Current Visit: Yes Status: Acute Patient today has temperature has temperature of 96.4, respiratory rate of 21 and WBC count of 13,000. This meets 3 out of 4 of the SIRS criteria. -Unclear how much of derangement in vital signs is consequence of being postoperative. -Surgery today revealed bowel perforation and widespread necrosis. -Lactic acid was more than 10. -Will repeat lactic acid -Blood cultures x2 incubating from peripheral venous source. -Patient is receiving fluids -Patient currently covered with fluconazole, Zosyn, and vancomycin -Hepatic panel is pending. -ABG showed pH of 7.27, pCO2 of 45, pO2 65, and HCO3 of 21. There is a base excess of -6. Suspect primary respiratory acidosis with secondary metabolic acidosis with increased anion gap -PT/INR showed elevated PT of 13.4 Qualifiers: Qualified Code(s): A41.9 - Sepsis, unspecified organism (3) HTN (hypertension) Current Visit: No Status: Acute Home medications are diltiazem, lisinopril and Lasix -Blood pressure is currently low at 87/44. -Will monitor. -Continue metoprolol as needed. Qualifiers: Hypertension type: unspecified Qualified Code(s): I10 - Essential (primary) hypertension (4) Diabetes mellitus Current Visit: No Status: Acute Home medications are glimepiride and metformin. -This afternoon had blood glucose of 61. -0.9% IVF was replaced for one time with single bag of D5 -Will continue to monitor blood glucose -Hypoglycemia order set in place. Qualifiers: Qualified Code(s): E11.9 - Type 2 diabetes mellitus without complications (5) DVT prophylaxis Current Visit: No Status: Acute Currently wearing SCDs Currently on heparin. History of Present Illness Consult date: 04/25/19 Requesting physician: Ronal Alberts Reason for consult: other (sepsis and ventilator management) Chief complaint: sepsis History of present illness: Lauren Echevarria is s 68 yo female who presented to the ED yesterday for severe chest pain while going to the bathroom. She admitted additionally back pain, abdominal pain, headache, nausea, vomiting, and dyspnea. Earlier in the day, she had an MRI abdomen/pelvis for adrenal mass which did not show anything which would have caused symptoms. In ED, Ultrasound abdomen showed one gallstone with no signs of obstruction or inflammaton. CT abdomen w contrast was concerning for SBO secondary to very large ventral hernia. Patient has been aware of hernia for around ten years. Patient reports it has been more painful lately and has been harder on palpation over previous few days. Chest pain workup was unremarkable. In ED, vomiting worsened and patient received fentanyl and morphine. Attempts to reduce hernia were unsuccessful. Surgery was consulted. It was discovered that the abdominal contents had herniated well into the patient's pannus. Condition was complicated by profound morbid obesity. This afternoon, patient was taken to surgery and 1 meter of distal small bowel was resected. Patient additionally received right hemicolectomy and ileostomy and mucous fistula due to perforation of colon and a large region of ischemic necrosis. Patient is now in ICU for ventilator support, monitoring for sepsis. She is currently on Diflucan, vancomycin, Zosyn and is sedated on Fentanyl and propofol. MAP was 48 on arrival and she has been given Levophed. Past Med Surg Social Fam HX - Past Medical History Medical history: arthritis, asthma, cancer, CHF, COPD, coronary artery disease, diabetes, hyperlipidemia, hypertension, myocardial infarction, renal disease Additional medical history: urterine CA "probably like 10 years ago" - Past Surgical History Surgical History: cancer surgery, hysterectomy, knee replacement - Social History Smoking Status: Former smoker Alcohol use: none Drug use: none - Family History Daughter Living Status: Still Living Hx Family Cardiac Disorders: Yes (HTN) Hx Family Respiratory Disorders: No Hx Family Cancer: No Hx Family GI Disorders: No Hx Family Endocrine Disorder: No Hx Family Neuromuscular Disorders: No Hx Family Neurologic Disorders: No Hx Family HEENT Disorders: No Hx Family Autoimmune Disorders: No Medications and Allergies Gabapentin 800 mg PO TID 01/14/19 [History] Glimepiride [Amaryl] 2 mg PO HS 01/14/19 [History] Ipratropium/Albuterol Sulfate [Combivent Respimat 20-100 Mcg] 1 puff IH QID 01/14/19 [History] Ipratropium/Albuterol Sulfate [Iprat-Albut 0.5-3(2.5) mg/3 ml] 3 ml IH TID PRN 01/14/19 [History] Lisinopril [Zestril] 40 mg PO DAILY 01/14/19 [History] Metformin HCl [Glucophage] 500 mg PO BID 01/14/19 [History] Omeprazole [PriLOSEC] 40 mg PO DAILY 01/14/19 [History] Red Yeast Rice 600 mg PO DAILY 01/14/19 [History] Tiotropium Shaniko [Spiriva Respimat] 2 puff IH DAILY 01/14/19 [History] Tramadol HCl [Ultram] 50 mg PO Q6H PRN 01/14/19 [History] dilTIAZem HCl [Diltiazem 24Hr Cd] 360 mg PO DAILY 01/14/19 [History] Aspirin [Lo-Dose Aspirin EC] 81 mg PO DAILY 01/15/19 [History] Cholecalciferol (D-3) [Vitamin D] 1,000 unit PO DAILY 01/15/19 [History] Cyanocobalamin (Vitamin B-12) [Vitamin B-12] 1,000 mcg PO DAILY 01/15/19 [History] DiphenhydraMINE [Benadryl] 50 mg PO BID 01/15/19 [History] Iron Amino Acid Chelate/B12/FA [Ferractiv Iron 27 mg Formula] 1 cap PO DAILY 01/15/19 [History] Naproxen Sodium [Aleve] 220 mg PO HS 01/15/19 [History] Doxycycline 100 mg PO Q12HR #5 capsule 01/17/19 [Rx] Furosemide [Lasix] 40 mg PO DAILY #30 tablet 01/17/19 [Rx] predniSONE [PredniSONE] 40 mg PO DAILY #3 tablet 01/17/19 [Rx] Hyoscyamine SL [Levsin SL] 0.125 mg SL Q4HR #12 tab.subl 04/24/19 [Rx] Allergy/AdvReac Type Severity Reaction Status Date / Time oxycodone [From Percocet] AdvReac See Verified 01/14/19 22:38 Comments Soacolm-Dzv-Spc Reductase AdvReac Muscle Pain Verified 01/14/19 22:38 Inhibitor [Statins] ROS unobtainable: due to endotracheal tube All Systems: The remainder of the systems were reviewed and are negative Physical Examination Vital Signs: Vital Signs, Last 4 Hours Temp Pulse Resp BP Pulse Ox 04/25/19 14:15 82 14 90/43 97 04/25/19 14:00 85 14 93/44 97 04/25/19 13:38 96.2 F L 97 04/25/19 13:35 85 12 88/50 97 04/25/19 13:19 12 100 04/25/19 13:18 96.2 F L 85 12 75/38 96 GENERAL: sedated, intubated, tremors present - likely postoperative NEUROLOGICAL: RASS -1/-2, briefly woke to voice. Eyes remained open for a short time but did not focus SKIN: no rashes, bruises, or jaundice EYES: pupils were equal and reactive to light bilaterally, nonicteric ENT: tongue appeared slightly dry, ETT in place CV: RRR, no murmurs, clicks, or gallops RESPIRATORY: clear to auscultation bilaterally, no rhonchi, wheezes, or rales. GI: soft, nondistended. Normal bowel sounds. Large surgical dressing on abdomen shows some blood. Surgical drain showed serosanguinous fluid EXTREMITIES: Dorsalis pedis pulses were difficult to discern, capillary refill <2 sec bilaterally : small quantity of urine in Lion bag Ventilator Settings Ventilator Settings: Ventilator Settings, Last 8 Hours Ventilator Tidal Volume 500 Setting Ventilator Tidal Volume 500 Setting Ventilator Tidal Volume 500 Setting Ventilator Tidal Volume 500 Setting Ventilator Respiratory Rate 12 Setting Ventilator Respiratory Rate 12 Setting Ventilator Respiratory Rate 12 Setting Ventilator Respiratory Rate 12 Setting Actual Respiratory Rate 12 Actual Respiratory Rate 12 Actual Respiratory Rate 12 Actual Respiratory Rate 12 Positive End Expiratory 5 Pressure Positive End Expiratory 5 Pressure Positive End Expiratory 5 Pressure Positive End Expiratory 5 Pressure Peak Inspiratory Airway 29 Pressure Peak Inspiratory Airway 29 Pressure Peak Inspiratory Airway 31 Pressure Peak Inspiratory Airway 30 Pressure Results - Laboratory Findings CBC and BMP: 04/25/19 14:11 04/25/19 13:51 ABG ABG pH 7.29 pH Units (7.32-7.45) L 04/25/19 12:18 ABG pCO2 44 mmHg (35-45) 04/25/19 12:18 ABG pO2 470 mmHg (85-104) H 04/25/19 12:18 ABG O2 Saturation 100 % (95-98) H 04/25/19 12:18 Abnormal lab findings: Abnormal lab results WBC 19.9 K/mcL (4.3-11.1) H 04/25/19 06:42 MCH 27.8 pg (28.0-33.3) L 04/25/19 06:42 MCHC 30.9 g/dL (31.6-35.5) L 04/25/19 06:42 RDW 15.4 % (11.5-14.5) H 04/25/19 06:42 MPV 13.5 fL (9.4-12.4) H 04/25/19 06:42 Neutrophils # 15.7 K/mcL (1.6-8.9) H 04/25/19 06:42 ABG pH 7.29 pH Units (7.32-7.45) L 04/25/19 12:18 ABG pO2 470 mmHg (85-104) H 04/25/19 12:18 ABG HCO3 19 mEq/L (21-27) L 04/25/19 11:50 ABG Total CO2 15 mEq/L (20-26) L 04/25/19 11:26 ABG O2 Saturation 100 % (95-98) H 04/25/19 12:18 ABG Base Excess -5 mEq/L (-2 to 3) L 04/25/19 12:18 ABG Hematocrit 35.0 % (35.3-44.9) L 04/25/19 12:18 Potassium 3.3 mEq/L (3.5-5.3) L 04/25/19 12:18 Glucose 185 mg/dL (60-95) H 04/25/19 12:18 Sodium 135 mEq/L (136-145) L 04/24/19 19:14 Carbon Dioxide 18 mEq/L (23-29) L 04/24/19 19:14 Glucose 269 mg/dL (70-105) H 04/25/19 06:42 POC Glucose 116 mg/dL (70-99) H 04/25/19 13:26 Phosphorus 5.1 mg/dL (2.7-4.5) H 04/25/19 06:42 Alkaline Phosphatase 132 Units/L (34-104) H 04/24/19 19:14 Arterial Blood Ionized Calcium 1.09 mmol/L (1.15-1.35) L 04/25/19 11:50 - Clinical Findings Intake & Output: Intake & Output 04/24/19 04/25/19 04/25/19 23:59 07:59 15:59 Intake Total 1000 / 1000 0 / 1000 Output Total 450 / 1125 675 / 1125 Balance 550 / -125 -675 / -125 Weight 105.687 kg 123.4 kg Consult Discharge Plan - Plan Referrals: Henry Jerry DO [Primary Care Provider] - <Sharlene Tillman - Last Filed: 04/25/19 22:46> Date of Encounter: 04/25/19 All Systems: The remainder of the systems were reviewed and are negative Physical Examination Vital Signs: Vital Signs, Last 4 Hours Temp Pulse Resp BP Pulse Ox 04/25/19 22:00 100 18 81/49 93 04/25/19 21:45 20 86/49 94 04/25/19 21:00 98 18 81/49 94 04/25/19 20:37 98.7 F 04/25/19 20:00 89 18 89/49 94 04/25/19 19:37 18 99/51 93 04/25/19 19:00 90 18 104/49 94 Ventilator Settings Ventilator Settings: Ventilator Settings, Last 8 Hours Ventilator Tidal Volume 500 Setting Ventilator Tidal Volume 500 Setting Ventilator Tidal Volume 500 Setting Ventilator Tidal Volume 500 Setting Ventilator Tidal Volume 500 Setting Ventilator Tidal Volume 500 Setting Ventilator Tidal Volume 500 Setting Ventilator Tidal Volume 500 Setting Ventilator Tidal Volume 500 Setting Ventilator Tidal Volume 500 Setting Ventilator Tidal Volume 500 Setting Ventilator Tidal Volume 500 Setting Ventilator Tidal Volume 500 Setting Ventilator Tidal Volume 500 Setting Ventilator Tidal Volume 500 Setting Ventilator Respiratory Rate 14 Setting Ventilator Respiratory Rate 14 Setting Ventilator Respiratory Rate 14 Setting Ventilator Respiratory Rate 14 Setting Ventilator Respiratory Rate 14 Setting Ventilator Respiratory Rate 14 Setting Ventilator Respiratory Rate 14 Setting Ventilator Respiratory Rate 14 Setting Ventilator Respiratory Rate 14 Setting Ventilator Respiratory Rate 14 Setting Ventilator Respiratory Rate 12 Setting Ventilator Respiratory Rate 12 Setting Ventilator Respiratory Rate 12 Setting Ventilator Respiratory Rate 12 Setting Ventilator Respiratory Rate 12 Setting Actual Respiratory Rate 18 Actual Respiratory Rate 20 Actual Respiratory Rate 18 Actual Respiratory Rate 18 Actual Respiratory Rate 18 Actual Respiratory Rate 17 Actual Respiratory Rate 18 Actual Respiratory Rate 18 Actual Respiratory Rate 21 Actual Respiratory Rate 18 Actual Respiratory Rate 18 Actual Respiratory Rate 18 Actual Respiratory Rate 19 Actual Respiratory Rate 18 Positive End Expiratory 5 Pressure Positive End Expiratory 5 Pressure Positive End Expiratory 5 Pressure Positive End Expiratory 5 Pressure Positive End Expiratory 5 Pressure Positive End Expiratory 5 Pressure Positive End Expiratory 5 Pressure Positive End Expiratory 5 Pressure Positive End Expiratory 5 Pressure Positive End Expiratory 5 Pressure Positive End Expiratory 5 Pressure Positive End Expiratory 5 Pressure Positive End Expiratory 5 Pressure Positive End Expiratory 5 Pressure Positive End Expiratory 5 Pressure Peak Inspiratory Airway 30 Pressure Peak Inspiratory Airway 28 Pressure Peak Inspiratory Airway 30 Pressure Peak Inspiratory Airway 30 Pressure Peak Inspiratory Airway 31 Pressure Peak Inspiratory Airway 30 Pressure Peak Inspiratory Airway 30 Pressure Peak Inspiratory Airway 30 Pressure Peak Inspiratory Airway 30 Pressure Peak Inspiratory Airway 30 Pressure Peak Inspiratory Airway 27 Pressure Peak Inspiratory Airway 27 Pressure Peak Inspiratory Airway 27 Pressure Peak Inspiratory Airway 27 Pressure Results - Laboratory Findings CBC and BMP: 04/25/19 14:11 04/25/19 17:24 ABG ABG pH 7.27 pH Units (7.32-7.45) L 04/25/19 16:28 ABG pCO2 45 mmHg (35-45) 04/25/19 16:28 ABG pO2 65 mmHg (85-104) L D 04/25/19 16:28 ABG O2 Saturation 89 % (95-98) L 04/25/19 16:28 PT/INR, D-dimer PT 13.4 Seconds (9.4-12.1) H 04/25/19 14:11 Abnormal lab findings: Abnormal lab results WBC 13.0 K/mcL (4.3-11.1) H 04/25/19 14:11 MCH 27.8 pg (28.0-33.3) L 04/25/19 06:42 MCHC 30.0 g/dL (31.6-35.5) L 04/25/19 14:11 RDW 15.7 % (11.5-14.5) H 04/25/19 14:11 MPV 13.6 fL (9.4-12.4) H 04/25/19 14:11 Band Neutrophils % 22.0 % (0-4) H 04/25/19 14:11 Neutrophils # 11.1 K/mcL (1.6-8.9) H 04/25/19 14:11 PT 13.4 Seconds (9.4-12.1) H 04/25/19 14:11 ABG pH 7.27 pH Units (7.32-7.45) L 04/25/19 16:28 ABG pO2 65 mmHg (85-104) L D 04/25/19 16:28 ABG HCO3 19 mEq/L (21-27) L 04/25/19 11:50 ABG Total CO2 15 mEq/L (20-26) L 04/25/19 11:26 ABG O2 Saturation 89 % (95-98) L 04/25/19 16:28 ABG Base Excess -6 mEq/L (-2 to 3) L 04/25/19 16:28 ABG Hematocrit 35.0 % (35.3-44.9) L 04/25/19 12:18 Potassium 3.3 mEq/L (3.5-5.3) L 04/25/19 12:18 Glucose 185 mg/dL (60-95) H 04/25/19 12:18 Sodium 149 mEq/L (136-145) H D 04/25/19 13:51 Potassium 3.2 mEq/L (3.5-5.1) L D 04/25/19 13:51 Carbon Dioxide 18 mEq/L (23-29) L 04/24/19 19:14 Creatinine 1.37 mg/dL (0.60-1.20) H 04/25/19 13:51 Est GFR ( Amer) 46 (> 60) L 04/25/19 13:51 Est GFR (Non-Af Amer) 38 (> 60) L 04/25/19 13:51 Glucose 269 mg/dL (70-105) H 04/25/19 06:42 POC Glucose 118 mg/dL (70-99) H 04/25/19 22:22 Calculated Osmolality 312 (280-300) H 04/25/19 13:51 Lactic Acid > 10.0 mmol/L (0.5-2.2) H* 04/25/19 14:04 Phosphorus 5.1 mg/dL (2.7-4.5) H 04/25/19 06:42 Direct Bilirubin 0.3 mg/dL (0.0-0.2) H 04/25/19 13:51 AST 153 Units/L (13-39) H 04/25/19 13:51 ALT 133 Units/L (7-52) H 04/25/19 13:51 Alkaline Phosphatase 132 Units/L (34-104) H 04/24/19 19:14 Serum Total Protein 5.0 g/dL (6.4-8.9) L 04/25/19 13:51 Albumin 3.1 g/dL (3.5-5.7) L 04/25/19 13:51 Globulin 1.9 g/dL (2.4-3.5) L 04/25/19 13:51 Arterial Blood Ionized Calcium 1.09 mmol/L (1.15-1.35) L 04/25/19 11:50 - Microbiology Findings Microbiology Findings: Microbiology, Last 48 Hours 04/25/19 14:25 Blood Culture - Preliminary Peripheral Venipuncture Culture is incubating and being continuously monitored for growth. Final report to follow. 04/25/19 14:30 Blood Culture - Preliminary Peripheral Venipuncture Culture is incubating and being continuously monitored for growth. Final report to follow. - Clinical Findings Intake & Output: Intake & Output 04/25/19 04/25/19 04/25/19 07:59 15:59 23:59 Intake Total 1000 / 5464 2024 / 5464 2440 / 5464 Output Total 450 / 1195 675 / 1195 70 / 1195 Balance 550 / 4269 1349 / 4269 2370 / 4269 Weight 123.4 kg - Attending Attestation I examined this patient and my medical decision-making was reviewed with the Resident Physician. I agree with the documented findings, disposition and treatment plan as described except to the extent set forth below. Patient seen and examined. I was called by surgeon Dr. Alberts to take care of this patient after she had a major surgery. Labs, radiology, chart personally reviewed. Agree with resident's history and physical, assessment, plan with following comments: GUITAR MAKER HAND: Patient doesn't follows commands, Pulmonary: Acceptable oxygenation and ventilation and checked ABG and checked her vent setting. Overall all acceptable for now. Cardiovascular: Patient is in septic shock and checked CVP level which is low and more fluid given for resuscitation with starting pressors after that. GI: Nutrition per dietary and GI prophylaxis per routine. s/p abdominal surgery and reviewed images with Dr. Alberts. Heme: DVT prophylaxis per routine ID: Continue antibiotics and plan to de-escalation. Patient has contaminated intra-abdominal source and need broad coverage with antibiotics and antifungal. Renal; urine out put and renal function reviewed. Patient with severe metabolic acidosis and bacarbonate might be helpful. Endorcine: blood glucose is monitored. we may need to add steroid. Lines: all lines checked and no evidence of infections Skin: skin care to prevent pressure ulcers per nursing routine care Dispo: ICU Code: Full. Prognosis. Overall poor and she is critical. I spent 60 min of Critical Care time with this patient. It involved decision making of high complexity to assess, manipulate, and support vital organ system failure and/or to prevent further life threatening deterioration of the patient's condition. The time involved in the performance of separately reportab le procedures was not counted toward critical care time.
[2019-04-25 14:49] LABS: Albumin 3.1 g/dL (3.5-5.7); Albumin/Globulin Ratio 1.6 (1.1-2.2); Bilirubin,Direct 0.3 mg/dL (0.0-0.2); Bilirubin,Indirect 0.3 mg/dL (0.0-1.2); Bilirubin,Total 0.6 mg/dL (0.3-1.0); Calcium 8.9 mg/dL (8.6-10.3); Globulin 1.9 g/dL (2.4-3.5); Potassium 3.2 mEq/L (3.5-5.1)
[2019-04-25] MEDS ORDERED: Fluconazole 400 MG/200 ML 400 MG/200 ML BAG IVPB ONE (15:00)
[2019-04-25] MEDS ORDERED: Vancomycin 1,750 MG in 0.9 % Sodium Chloride 250 ML IVPB SCH (15:00)
[2019-04-25 15:03] LABS: INR 1.2; Prothrombin Time 13.4 Seconds (9.4-12.1)
[2019-04-25 15:05] LABS: Activated Partial Thrombo Time 33.5 Seconds (26.0-36.0)
[2019-04-25 15:18] LABS: Hematocrit 41.4 % (35.3-44.9); Hemoglobin 12.4 g/dL (11.5-15.4); Mean Corpuscular Hemoglobin 28.1 pg (28.0-33.3); Mean Corpuscular Volume 93.9 fL (83.0-100.0); Mean Platelet Volume 13.6 fL (9.4-12.4); Platelet Count 180 K/mcL (140-400); Red Blood Count 4.41 M/mcL (3.82-4.97); Red Cell Distribution Width 15.7 % (11.5-14.5)
[2019-04-25] MEDS ORDERED: Aminoglycoside Consult 1 EACH MC ONE (15:36)
[2019-04-25 16:12] LABS: Lymphocytes # 1.8 K/mcL (0.6-4.6); Monocytes # 0.1 K/mcL (0.0-1.3); Neutrophils # 11.1 K/mcL (1.6-8.9); Platelet Estimate Normal (Normal)
[2019-04-25] MEDS ORDERED: 0.9 % Sodium Chloride 1,000 ML IVC ONE (16:14)
[2019-04-25 16:32] LABS: ABG Base Excess -6 mEq/L (-2 to 3); ABG HCO3 21 mEq/L (21-27); ABG Oxygen Saturation 89 % (95-98); ABG PCO2 45 mmHg (35-45); ABG PH 7.27 pH Units (7.32-7.45); ABG PO2 65 mmHg (85-104); ABG TCO2 22 mEq/L (20-26); Blood Gas Modality ASSIST CONTROL; Blood Gas PEEP 5 cm H2O; Blood Gas VT 500 cc
[2019-04-25] MEDS ORDERED: D5% in Water 1,000 ML IVC PRN (18:34)
[2019-04-25] MEDS ORDERED: Dextrose Gel 15 GM/37.5 ML TUBE PO PRN ×2 (18:34)
[2019-04-25] MEDS ORDERED: *HR* Dextrose 50 % in Water (Syg) 50 ML SYRINGE IVP PRN (18:34)
[2019-04-25] MEDS ORDERED: D5% in 0.9% NACL 1,000 ML IVC SCH (19:10)
[2019-04-25] MEDS ORDERED: Nitroglycerin 0.4 MG TAB.SUBL SL PRN (19:10)
[2019-04-25] MEDS: Norepinephrine 8 MG in 0.9 % Sodium Chloride 250 ML IVC SCH (21:30)
[2019-04-25] MEDS ORDERED: Phenylephrine 10 MG in 0.9 % Sodium Chloride 250 ML IVC SCH (22:30)
[2019-04-25] MEDS ORDERED: Vasopressin 40 UNIT in D5% in Water 100 ML IV SCH (22:30)
[2019-04-25] MEDS: FentaNYL (PF) 1,000 MCG in 0.9 % Sodium Chloride 80 ML IVC SCH (22:42)
[2019-04-25] MEDS: Phenylephrine 50 MG in 0.9 % Sodium Chloride 250 ML IVC SCH (23:15)
[2019-04-25] MEDS: Piperacillin/Tazobactam 3.375 GM in 0.9 % Sodium Chloride Mini Bag 100 ML IVPB SCH (23:19)
[2019-04-26 00:17] LABS: Hematocrit 42.2 % (35.3-44.9); Hemoglobin 12.8 g/dL (11.5-15.4); Mean Corpuscular HGB Conc 30.3 g/dL (31.6-35.5); Mean Corpuscular Hemoglobin 27.9 pg (28.0-33.3); Mean Corpuscular Volume 91.9 fL (83.0-100.0); Mean Platelet Volume 13.8 fL (9.4-12.4); Platelet Count 177 K/mcL (140-400); Red Blood Count 4.59 M/mcL (3.82-4.97); Red Cell Distribution Width 15.9 % (11.5-14.5)
[2019-04-26 00:21] LABS: White Blood Count 21.1 K/mcL (4.3-11.1)
[2019-04-26 00:43] LABS: Lymphocytes # 2.1 K/mcL (0.6-4.6); Monocytes # 1.7 K/mcL (0.0-1.3); Neutrophils # 15.2 K/mcL (1.6-8.9)
[2019-04-26 00:44] LABS: Platelet Estimate Normal (Normal); Reactive Lymphocytes Present (Not Present)
[2019-04-26 01:24] LABS: Albumin 2.8 g/dL (3.5-5.7); Albumin/Globulin Ratio 1.3 (1.1-2.2); Bilirubin,Direct 0.3 mg/dL (0.0-0.2); Bilirubin,Indirect 0.4 mg/dL (0.0-1.2); Bilirubin,Total 0.7 mg/dL (0.3-1.0); Calcium 7.9 mg/dL (8.6-10.3); Globulin 2.1 g/dL (2.4-3.5); Magnesium 1.4 mg/dL (1.6-2.6); Potassium 4.2 mEq/L (3.5-5.1); Total Protein 4.9 g/dL (6.4-8.9)
[2019-04-26] MEDS: Norepinephrine 8 MG in 0.9 % Sodium Chloride 250 ML IVC SCH ×3 (02:26→11:37)
--- NOTE | 2019-04-26 03:07 | Event Note ---
Date of Encounter: 04/26/19 Time of Encounter: 03:01 Was notified by nursing staff that patient remains hypotensive while maxed out on all pressors. There was concern for multi-organ failure, repeat labs wbc up from 13 to 21.1, scr 1.37 - 2.23, ALT 133 to 1597, and AST 153 - 2404, called and updated electronic induction hardener Gen. Surgeon.
[2019-04-26] MEDS ORDERED: Sodium Bicarbonate 100 MEQ in D5% in Water 1,000 ML IVC SCH (03:15)
[2019-04-26] MEDS: FentaNYL (PF) 1,000 MCG in 0.9 % Sodium Chloride 80 ML IVC SCH (03:53)
[2019-04-26 04:27] LABS: VBG Ionized Calcium 1.05 mmol/L (1.15-1.35)
[2019-04-26] MEDS: Phenylephrine 50 MG in 0.9 % Sodium Chloride 250 ML IVC SCH ×3 (04:34→15:23)
[2019-04-26 04:45] LABS: Acinetobacter baumannii by PCR Not Detected (Not Detect); Candida albicans by PCR Not Detected (Not Detect); Candida glabrata by PCR Not Detected (Not Detect); Candida krusei by PCR Not Detected (Not Detect); Candida parapsilosis by PCR Not Detected (Not Detect); Candida tropicalis by PCR Not Detected (Not Detect); Enterobacter cloacae Cmplx PCR Not Detected (Not Detect); Enterococcus by PCR Not Detected (Not Detect); Escherichia coli by PCR DETECTED (Not Detect); Klebsiella oxytoca by PCR Not Detected (Not Detect); Klebsiella pneumoniae by PCR Not Detected (Not Detect); Proteus by PCR Not Detected (Not Detect); Pseudomonas aeruginosa by PCR Not Detected (Not Detect); Serratia marcescens by PCR Not Detected (Not Detect); Staphylococcus aureus by PCR Not Detected (Not Detect); Staphylococcus by PCR Not Detected (Not Detect); Streptococcus agalactiae(B)PCR Not Detected (Not Detect); Streptococcus by PCR Not Detected (Not Detect); Streptococcus pneumoniae PCR Not Detected (Not Detect); Streptococcus pyogenes (A) PCR Not Detected (Not Detect); blaKPC Carbapenem-Resist Gene Not Detected (Not Detect); mecA Methicillin-Resist Gene Not Detected (Not Detect); vanA/B Vancomycin-Resist Genes Not Detected (Not Detect)
[2019-04-26 04:45] LABS: Calcium 7.8 mg/dL (8.6-10.3); Magnesium 1.6 mg/dL (1.6-2.6); Phosphorous 6.3 mg/dL (2.7-4.5); Potassium 4.9 mEq/L (3.5-5.1)
[2019-04-26] MEDS ORDERED: Potassium Phosphate 44 MEQ in 0.9 % Sodium Chloride 250 ML IVPB PRN (04:51)
[2019-04-26] MEDS ORDERED: Calcium Gluconate 1gm/50mL 1 GM/50 ML BAG IVPB PRN (04:51)
[2019-04-26] MEDS ORDERED: Potassium Chloride 40 MEQ/200 ML BAG IVPB PRN (04:51)
[2019-04-26 05:07] LABS: Hematocrit 42.7 % (35.3-44.9); Hemoglobin 12.8 g/dL (11.5-15.4); Immature Platelets 17.6 % (1.1-6.1); Mean Corpuscular Hemoglobin 28.1 pg (28.0-33.3); Mean Corpuscular Volume 93.8 fL (83.0-100.0); Mean Platelet Volume 14.5 fL (9.4-12.4); Platelet Count 176 K/mcL (140-400); Red Blood Count 4.55 M/mcL (3.82-4.97); Red Cell Distribution Width 16.3 % (11.5-14.5); White Blood Count 25.8 K/mcL (4.3-11.1)
[2019-04-26 05:12] LABS: Lymphocytes # 1.6 K/mcL (0.6-4.6); Monocytes # 2.1 K/mcL (0.0-1.3); Neutrophils # 18.6 K/mcL (1.6-8.9); Platelet Estimate Normal (Normal); Toxic Granulation Present (Not Present)
[2019-04-26 05:13] LABS: Large Platelets Present (Not Present)
[2019-04-26] MEDS: Hydrocortisone Sodium Succ 100 MG/2 ML VIAL IVP SCH ×2 (05:52→11:38)
[2019-04-26] MEDS: Piperacillin/Tazobactam 3.375 GM in 0.9 % Sodium Chloride Mini Bag 100 ML IVPB SCH (05:52)
[2019-04-26] MEDS ORDERED: *HR* Heparin 5,000 UNIT/ML VIAL SQ SCH (06:00)
[2019-04-26] MEDS ORDERED: Pantoprazole 40 MG VIAL IVP SCH (06:30)
[2019-04-26 07:52] LABS: ABG Base Excess -15 mEq/L (-2 to 3); ABG HCO3 14 mEq/L (21-27); ABG Oxygen Saturation 84 % (95-98); ABG PCO2 45 mmHg (35-45); ABG PH 7.11 pH Units (7.32-7.45); ABG PO2 65 mmHg (85-104); ABG TCO2 16 mEq/L (20-26); Blood Gas Modality ASSIST CONTROL; Blood Gas PEEP 5 cm H2O; Blood Gas VT 500 cc
[2019-04-26] MEDS ORDERED: Ertapenem 1,000 MG in 0.9 % Sodium Chloride Mini Bag 100 ML IVPB SCH (09:00)
[2019-04-26] MEDS ORDERED: Fluconazole 200 MG/100 ML 200 MG/100 ML BAG IVPB SCH ×3 (09:00→15:00)
--- NOTE | 2019-04-26 09:59 | Pulmonology Progress Note ---
<Lucinda Herrera - Last Filed: 04/26/19 15:28> Date of Encounter: 04/26/19 Time of Encounter: 15:22 Assessment and Plan (1) Incarcerated hernia Status: Acute Surgical team followed this morning. -Family agreed today for patient code status to be changed to DNR-CCA -Patient appears to be on rapid decline at present (2) Sepsis Status: Acute Lactic acid today was 7.3, elevated from 6.2 WBC is now 21,100, with HR 43, RR 17, BP 32/21 -Patient code status is DNR-CCA Qualifiers: Qualified Code(s): A41.9 - Sepsis, unspecified organism (3) HTN (hypertension) Status: Acute Last blood pressure was 33/21. Currently hypotensive Qualifiers: Hypertension type: unspecified Qualified Code(s): I10 - Essential (primary) hypertension (4) Diabetes mellitus Status: Acute Hypoglycemia order set was in place Qualifiers: Qualified Code(s): E11.9 - Type 2 diabetes mellitus without complications (5) DVT prophylaxis Status: Acute Wearing SCDs and on heparin Subjective Principal diagnosis: Sepsis Interval history: Since yesterday, patient is still sedated. Family has been consulted and agreed to change code status to DNR-CCA. Patient is in process of dying. Objective PUL Vital signs: Last Vital Signs Temp 99.4 F 04/26/19 07:35 Pulse 83 04/26/19 09:13 Resp 18 04/26/19 09:13 BP 50/33 04/26/19 09:13 Pulse Ox 96 04/26/19 09:13 GENERAL: unresponsive, intubated NEUROLOGICAL: GCS 3 SKIN: cool, moist EYES: anicteric, pupils did not react to light ENT: ETT in place, oral mucosa somewhat dry CV: difficult to hear over breath sounds RESPIRATORY: coarse mechanical breath sounds GI: distended, bowel sounds were not heard EXTREMITIES: feet and hands were cold and clammy. Dorsalis pedis pulses were 0/4 Ventilator Settings Ventilator Settings: Ventilator Settings, Last 8 Hours Ventilator Tidal Volume 500 Setting Ventilator Tidal Volume 500 Setting Ventilator Tidal Volume 500 Setting Ventilator Tidal Volume 500 Setting Ventilator Tidal Volume 500 Setting Ventilator Tidal Volume 500 Setting Ventilator Tidal Volume 500 Setting Ventilator Tidal Volume 500 Setting Ventilator Tidal Volume 500 Setting Ventilator Tidal Volume 500 Setting Ventilator Tidal Volume 500 Setting Ventilator Tidal Volume 500 Setting Ventilator Respiratory Rate 16 Setting Ventilator Respiratory Rate 16 Setting Ventilator Respiratory Rate 16 Setting Ventilator Respiratory Rate 16 Setting Ventilator Respiratory Rate 14 Setting Ventilator Respiratory Rate 14 Setting Ventilator Respiratory Rate 14 Setting Ventilator Respiratory Rate 14 Setting Ventilator Respiratory Rate 14 Setting Ventilator Respiratory Rate 14 Setting Ventilator Respiratory Rate 14 Setting Ventilator Respiratory Rate 14 Setting Ventilator Respiratory Rate 14 Setting Actual Respiratory Rate 18 Actual Respiratory Rate 17 Actual Respiratory Rate 18 Actual Respiratory Rate 16 Actual Respiratory Rate 17 Actual Respiratory Rate 16 Actual Respiratory Rate 17 Actual Respiratory Rate 18 Actual Respiratory Rate 20 Actual Respiratory Rate 21 Actual Respiratory Rate 18 Positive End Expiratory 5 Pressure Positive End Expiratory 5 Pressure Positive End Expiratory 5 Pressure Positive End Expiratory 5 Pressure Positive End Expiratory 5 Pressure Positive End Expiratory 5 Pressure Positive End Expiratory 5 Pressure Positive End Expiratory 5 Pressure Positive End Expiratory 5 Pressure Positive End Expiratory 5 Pressure Positive End Expiratory 5 Pressure Positive End Expiratory 5 Pressure Peak Inspiratory Airway 27 Pressure Peak Inspiratory Airway 27 Pressure Peak Inspiratory Airway 27 Pressure Peak Inspiratory Airway 26 Pressure Peak Inspiratory Airway 26 Pressure Peak Inspiratory Airway 26 Pressure Peak Inspiratory Airway 28 Pressure Peak Inspiratory Airway 28 Pressure Peak Inspiratory Airway 30 Pressure Peak Inspiratory Airway 28 Pressure Peak Inspiratory Airway 28 Pressure Results - Laboratory Findings CBC and BMP: 04/26/19 04:15 04/26/19 04:15 ABG ABG pH 7.11 pH Units (7.32-7.45) L* 04/26/19 07:48 ABG pCO2 45 mmHg (35-45) 04/26/19 07:48 ABG pO2 65 mmHg (85-104) L 04/26/19 07:48 ABG O2 Saturation 84 % (95-98) L 04/26/19 07:48 PT/INR, D-dimer PT 13.4 Seconds (9.4-12.1) H 04/25/19 14:11 Abnormal lab findings: Abnormal lab results WBC 25.8 K/mcL (4.3-11.1) H 04/26/19 04:15 MCH 27.9 pg (28.0-33.3) L 04/26/19 00:00 MCHC 30.0 g/dL (31.6-35.5) L 04/26/19 04:15 RDW 16.3 % (11.5-14.5) H 04/26/19 04:15 MPV 14.5 fL (9.4-12.4) H 04/26/19 04:15 Band Neutrophils % 12.0 % (0-4) H 04/26/19 04:15 Metamyelocytes % 2.0 % (0) H 04/26/19 04:15 Myelocytes % 6.0 % (0) H 04/26/19 04:15 Promyelocytes % 6.0 % (0) H 04/26/19 04:15 Neutrophils # 18.6 K/mcL (1.6-8.9) H 04/26/19 04:15 Monocytes # 2.1 K/mcL (0.0-1.3) H 04/26/19 04:15 Reactive Lymphocytes Present (Not Present) A 04/26/19 00:00 Toxic Granulation Present (Not Present) A 04/26/19 04:15 Large Platelets Present (Not Present) A 04/26/19 04:15 Immature Plt Fraction 17.6 % (1.1-6.1) H 04/26/19 04:15 PT 13.4 Seconds (9.4-12.1) H 04/25/19 14:11 ABG pH 7.11 pH Units (7.32-7.45) L* 04/26/19 07:48 ABG pO2 65 mmHg (85-104) L 04/26/19 07:48 ABG HCO3 14 mEq/L (21-27) L 04/26/19 07:48 ABG Total CO2 16 mEq/L (20-26) L 04/26/19 07:48 ABG O2 Saturation 84 % (95-98) L 04/26/19 07:48 ABG Base Excess -15 mEq/L (-2 to 3) L 04/26/19 07:48 ABG Hematocrit 35.0 % (35.3-44.9) L 04/25/19 12:18 Potassium 3.3 mEq/L (3.5-5.3) L 04/25/19 12:18 Glucose 185 mg/dL (60-95) H 04/25/19 12:18 Sodium 149 mEq/L (136-145) H D 04/25/19 13:51 Potassium 3.2 mEq/L (3.5-5.1) L D 04/25/19 13:51 Chloride 114 mEq/L (98-107) H 04/26/19 04:15 Carbon Dioxide 16 mEq/L (23-29) L 04/26/19 04:15 BUN 33 mg/dL (8-23) H 04/26/19 04:15 Creatinine 2.70 mg/dL (0.60-1.20) H 04/26/19 04:15 Est GFR ( Amer) 21 (> 60) L 04/26/19 04:15 Est GFR (Non-Af Amer) 17 (> 60) L 04/26/19 04:15 Glucose 116 mg/dL (70-105) H 04/26/19 04:15 POC Glucose 105 mg/dL (70-99) H 04/26/19 05:23 Calculated Osmolality 308 (280-300) H 04/26/19 04:15 Lactic Acid 7.3 mmol/L (0.5-2.2) H* 04/26/19 04:15 Calcium 7.8 mg/dL (8.6-10.3) L 04/26/19 04:15 Venous Ioniz Calcium 1.05 mmol/L (1.15-1.35) L 04/26/19 04:25 Phosphorus 6.3 mg/dL (2.7-4.5) H 04/26/19 04:15 Magnesium 1.4 mg/dL (1.6-2.6) L 04/26/19 00:00 Direct Bilirubin 0.3 mg/dL (0.0-0.2) H 04/26/19 00:00 AST 2404 Units/L (13-39) H 04/26/19 00:00 ALT 1597 Units/L (7-52) H 04/26/19 00:00 Alkaline Phosphatase 132 Units/L (34-104) H 04/24/19 19:14 Serum Total Protein 4.9 g/dL (6.4-8.9) L 04/26/19 00:00 Albumin 2.8 g/dL (3.5-5.7) L 04/26/19 00:00 Globulin 2.1 g/dL (2.4-3.5) L 04/26/19 00:00 Arterial Blood Ionized Calcium 1.09 mmol/L (1.15-1.35) L 04/25/19 11:50 E. coli (PCR) DETECTED (Not Detect) A 04/25/19 14:25 - Microbiology Findings Microbiology Findings: Microbiology, Last 48 Hours 04/25/19 14:25 Blood Culture - Preliminary Peripheral Venipuncture Gram Negative Piter 04/25/19 14:30 Blood Culture - Preliminary Peripheral Venipuncture Culture is incubating and being continuously monitored for growth. Final report to follow. - Clinical Findings Intake & Output: Intake & Output 04/25/19 04/26/19 04/26/19 23:59 07:59 15:59 Intake Total 2600 / 5649 2059 / 2414 355 / 2414 Output Total 70 / 1195 410 / 410 Balance 2530 / 4454 1648 Weight 126.8 kg Consult Discharge Plan - Plan Referrals: Henry Jerry, [Primary Care Provider] - <Sharlene Tillman - Last Filed: 04/28/19 10:44> Date of Encounter: 04/26/19 Objective PUL Vital signs: Last Vital Signs Temp 99.4 F 04/26/19 07:35 Pulse 79 04/26/19 10:00 Resp 17 04/26/19 10:00 BP 58/36 04/26/19 10:00 Pulse Ox 96 04/26/19 10:00 Ventilator Settings Ventilator Settings: Ventilator Settings, Last 8 Hours Ventilator Tidal Volume 500 Setting Ventilator Tidal Volume 500 Setting Ventilator Tidal Volume 500 Setting Ventilator Tidal Volume 500 Setting Ventilator Tidal Volume 500 Setting Ventilator Tidal Volume 500 Setting Ventilator Tidal Volume 500 Setting Ventilator Tidal Volume 500 Setting Ventilator Tidal Volume 500 Setting Ventilator Tidal Volume 500 Setting Ventilator Tidal Volume 500 Setting Ventilator Tidal Volume 500 Setting Ventilator Respiratory Rate 16 Setting Ventilator Respiratory Rate 16 Setting Ventilator Respiratory Rate 16 Setting Ventilator Respiratory Rate 16 Setting Ventilator Respiratory Rate 16 Setting Ventilator Respiratory Rate 14 Setting Ventilator Respiratory Rate 14 Setting Ventilator Respiratory Rate 14 Setting Ventilator Respiratory Rate 14 Setting Ventilator Respiratory Rate 14 Setting Ventilator Respiratory Rate 14 Setting Ventilator Respiratory Rate 14 Setting Ventilator Respiratory Rate 14 Setting Actual Respiratory Rate 17 Actual Respiratory Rate 18 Actual Respiratory Rate 17 Actual Respiratory Rate 18 Actual Respiratory Rate 16 Actual Respiratory Rate 17 Actual Respiratory Rate 16 Actual Respiratory Rate 17 Actual Respiratory Rate 18 Actual Respiratory Rate 20 Actual Respiratory Rate 21 Positive End Expiratory 5 Pressure Positive End Expiratory 5 Pressure Positive End Expiratory 5 Pressure Positive End Expiratory 5 Pressure Positive End Expiratory 5 Pressure Positive End Expiratory 5 Pressure Positive End Expiratory 5 Pressure Positive End Expiratory 5 Pressure Positive End Expiratory 5 Pressure Positive End Expiratory 5 Pressure Positive End Expiratory 5 Pressure Positive End Expiratory 5 Pressure Peak Inspiratory Airway 28 Pressure Peak Inspiratory Airway 27 Pressure Peak Inspiratory Airway 27 Pressure Peak Inspiratory Airway 27 Pressure Peak Inspiratory Airway 26 Pressure Peak Inspiratory Airway 26 Pressure Peak Inspiratory Airway 26 Pressure Peak Inspiratory Airway 28 Pressure Peak Inspiratory Airway 28 Pressure Peak Inspiratory Airway 30 Pressure Peak Inspiratory Airway 28 Pressure Results - Laboratory Findings CBC and BMP: 04/26/19 04:15 04/26/19 04:15 ABG ABG pH 7.11 pH Units (7.32-7.45) L* 04/26/19 07:48 ABG pCO2 45 mmHg (35-45) 04/26/19 07:48 ABG pO2 65 mmHg (85-104) L 04/26/19 07:48 ABG O2 Saturation 84 % (95-98) L 04/26/19 07:48 PT/INR, D-dimer PT 13.4 Seconds (9.4-12.1) H 04/25/19 14:11 Abnormal lab findings: Abnormal lab results WBC 25.8 K/mcL (4.3-11.1) H 04/26/19 04:15 MCH 27.9 pg (28.0-33.3) L 04/26/19 00:00 MCHC 30.0 g/dL (31.6-35.5) L 04/26/19 04:15 RDW 16.3 % (11.5-14.5) H 04/26/19 04:15 MPV 14.5 fL (9.4-12.4) H 04/26/19 04:15 Band Neutrophils % 12.0 % (0-4) H 04/26/19 04:15 Metamyelocytes % 2.0 % (0) H 04/26/19 04:15 Myelocytes % 6.0 % (0) H 04/26/19 04:15 Promyelocytes % 6.0 % (0) H 04/26/19 04:15 Neutrophils # 18.6 K/mcL (1.6-8.9) H 04/26/19 04:15 Monocytes # 2.1 K/mcL (0.0-1.3) H 04/26/19 04:15 Reactive Lymphocytes Present (Not Present) A 04/26/19 00:00 Toxic Granulation Present (Not Present) A 04/26/19 04:15 Large Platelets Present (Not Present) A 04/26/19 04:15 Immature Plt Fraction 17.6 % (1.1-6.1) H 04/26/19 04:15 PT 13.4 Seconds (9.4-12.1) H 04/25/19 14:11 ABG pH 7.11 pH Units (7.32-7.45) L* 04/26/19 07:48 ABG pO2 65 mmHg (85-104) L 04/26/19 07:48 ABG HCO3 14 mEq/L (21-27) L 04/26/19 07:48 ABG Total CO2 16 mEq/L (20-26) L 04/26/19 07:48 ABG O2 Saturation 84 % (95-98) L 04/26/19 07:48 ABG Base Excess -15 mEq/L (-2 to 3) L 04/26/19 07:48 ABG Hematocrit 35.0 % (35.3-44.9) L 04/25/19 12:18 Potassium 3.3 mEq/L (3.5-5.3) L 04/25/19 12:18 Glucose 185 mg/dL (60-95) H 04/25/19 12:18 Sodium 149 mEq/L (136-145) H D 04/25/19 13:51 Potassium 3.2 mEq/L (3.5-5.1) L D 04/25/19 13:51 Chloride 114 mEq/L (98-107) H 04/26/19 04:15 Carbon Dioxide 16 mEq/L (23-29) L 04/26/19 04:15 BUN 33 mg/dL (8-23) H 04/26/19 04:15 Creatinine 2.70 mg/dL (0.60-1.20) H 04/26/19 04:15 Est GFR ( Amer) 21 (> 60) L 04/26/19 04:15 Est GFR (Non-Af Amer) 17 (> 60) L 04/26/19 04:15 Glucose 116 mg/dL (70-105) H 04/26/19 04:15 POC Glucose 105 mg/dL (70-99) H 04/26/19 05:23 Calculated Osmolality 308 (280-300) H 04/26/19 04:15 Lactic Acid 7.3 mmol/L (0.5-2.2) H* 04/26/19 04:15 Calcium 7.8 mg/dL (8.6-10.3) L 04/26/19 04:15 Venous Ioniz Calcium 1.05 mmol/L (1.15-1.35) L 04/26/19 04:25 Phosphorus 6.3 mg/dL (2.7-4.5) H 04/26/19 04:15 Magnesium 1.4 mg/dL (1.6-2.6) L 04/26/19 00:00 Direct Bilirubin 0.3 mg/dL (0.0-0.2) H 04/26/19 00:00 AST 2404 Units/L (13-39) H 04/26/19 00:00 ALT 1597 Units/L (7-52) H 04/26/19 00:00 Alkaline Phosphatase 132 Units/L (34-104) H 04/24/19 19:14 Serum Total Protein 4.9 g/dL (6.4-8.9) L 04/26/19 00:00 Albumin 2.8 g/dL (3.5-5.7) L 04/26/19 00:00 Globulin 2.1 g/dL (2.4-3.5) L 04/26/19 00:00 Arterial Blood Ionized Calcium 1.09 mmol/L (1.15-1.35) L 04/25/19 11:50 E. coli (PCR) DETECTED (Not Detect) A 04/25/19 14:25 - Microbiology Findings Microbiology Findings: Microbiology, Last 48 Hours 04/25/19 14:25 Blood Culture - Preliminary Peripheral Venipuncture Gram Negative Piter 04/25/19 14:30 Blood Culture - Preliminary Peripheral Venipuncture Culture is incubating and being continuously monitored for growth. Final report to follow. - Clinical Findings Intake & Output: Intake & Output 04/25/19 04/26/19 04/26/19 23:59 07:59 15:59 Intake Total 2600 / 5649 2059 / 2414 355 / 2414 Output Total 70 / 1195 410 / 410 Balance 2530 / 4454 1648 Weight 126.8 kg - Attending Attestation I examined this patient and my medical decision-making was reviewed with the Resident Physician. I agree with the documented findings, disposition and oh tment plan as described except to the extent set forth below. Patient seen and examined. Labs, radiology, chart personally reviewed. Agree with resident's history and physical, assessment, plan with following comments: BUN ICER: Patient doesn't follows commands, and wean off sedation as much as possible , however she needs to be comfortable for the vent synchrony and also she is status post surgery. Pulmonary: Acceptable oxygenation and ventilation and changed vent setting. Patient will remain intubated for now and no plan for spontaneous breathing trial. Cardiovascular: Septic shock and CVP is better, but she is on 3 pressors we will continue fluid resuscitation based on her CVP and support with systemic steroid if needed. GI: Nutrition per dietary and GI prophylaxis per routine Heme: DVT prophylaxis per routine ID: Continue antibiotics and plan to de-escalation. patient in septic shock and stop pressor. Patient with severe lactic acidosis and discussed with primary team that overall condition does not look good and this was also communicated with the family at the bedside. Renal; urine out put and renal function reviewed. Nephrology consult and may need [employer]ING [employer] Endorcine: blood glucose is monitored Lines: all lines checked and no evidence of infections Skin: skin care to prevent pressure ulcers per nursing routine care Dispo: ICU Code: Full. Prognosis. Critical and poor prognosis. I spent 40 min of Critical Care time with this patient. It involved decision making of high complexity to assess, manipulate, and support vital organ system failure and/or to prevent further life threatening deterioration of the patient's condition. The time involved in the performance of separately reportable procedures was not counted toward critical care time.
--- NOTE | 2019-04-26 11:18 | AcuteCareSurgery Progress Note ---
Date of Encounter: 04/26/19 Time of Encounter: 08:00 - Assessment and Plan (1) Sepsis Status: Acute with shock. Due to ischemic gut. S/P Exploratory laparotomy with extended right farzad and SBR. Pt's prognosis is poor. We will keep pt comfortable and support family at this time. Qualifiers: Qualified Code(s): A41.9 - Sepsis, unspecified organism (2) Renal failure Status: Acute Qualifiers: Renal failure chronicity: acute Qualified Code(s): N17.9 - Acute kidney failure, unspecified (3) Acute respiratory failure with hypoxemia Status: Acute (4) CHF exacerbation Status: Acute Qualifiers: Heart failure type: diastolic Qualified Code(s): I50.33 - Acute on chronic diastolic (congestive) heart failure (5) COPD exacerbation Status: Acute (6) Diabetes mellitus Status: Acute Qualifiers: Qualified Code(s): E11.9 - Type 2 diabetes mellitus without complications (7) Acute liver failure Status: Acute Qualifiers: Qualified Code(s): K72.00 - Acute and subacute hepatic failure without coma (8) Multisystem organ failure Status: Acute d/y sepsis Subjective Narrative: Pt is sedated on vent. She is POD#1 from ex lap with finding of ischemic gut. She is in septic shock with maximum vasopressor support and in multisystem organ failure. Her prognosis is very poor. Continue current post-op care per pulmonary/critical care service. Objective Vital Signs - Last 8 Hours Temp Pulse Resp BP Pulse Ox 04/26/19 11:12 77 17 51/32 90 04/26/19 11:09 19 85 04/26/19 10:50 77 19 45/29 91 04/26/19 10:00 79 17 58/36 96 04/26/19 09:13 83 18 50/33 96 04/26/19 08:25 86 04/26/19 08:08 18 94 04/26/19 08:00 85 18 57/37 94 04/26/19 07:35 99.4 F 04/26/19 07:00 82 1 76/39 91 04/26/19 06:00 85 17 81/45 90 04/26/19 05:30 16 86/50 91 04/26/19 05:00 88 17 82/49 91 04/26/19 04:00 108 18 91/54 90 04/26/19 03:40 20 96/54 92 Intake and Output 04/25/19 04/26/19 04/26/19 23:59 07:59 15:59 Intake Total 2600 / 5749 2059 / 2514 455 / 2514 Output Total 70 / 1195 410 / 410 Balance 2530 / 4554 1649 / 2104 455 / 2104 Intake: IV Fluids 2600 / 5749 2059 / 2514 455 / 2514 0.9 % Sodium Chloride 1,000 ML 1000 / 2000 @ 999 mls/hr IVC .Q1H1M [facility] Rx# :[id number] D5% And 0.9% Nacl 1000 Ml 1,000 1000 / 2000 800 / 800 ML @ 100 mls/hr IVC .Q10H [facility] Rx#:[id number] FentaNYL (PF) 1,000 MCG In 0.9 100 / 100 % Sodium Chloride 80 ML @ 50 MCG/HR 5 mls/hr IVC CONT [facility] Rx #:[id number] Levophed 8 MG In 0.9 % Sodium 230 / 254 516 / 516 Chloride 250 ML @ 8 MCG/MIN 15. 48 mls/hr IVC CONT [facility] Rx#: [id number] Phenylephrine 50 MG In 0.9 % 60 / 85 255 / 510 255 / 510 Sodium Chloride 250 ML @ 40 MCG /MIN 12.24 mls/hr IVC CONT [facility] Rx#:[id number] Diprivan 1,000 mg In 100 ml @ 5 10 / 10 134 / 134 MCG/KG/MIN 3.702 mls/hr IVC . Q24H [facility] Rx#:[id number] Calcium Gluconate 1gm/50mL 1 gm 50 / 50 In 50 ml @ 50 mls/hr IVPB Q6HR PRN Rx#:[id number] INVanz 1,000 MG In 0.9 % Sodium 100 / 100 Chloride (Mini-Bag +) 100 ML @ 100 mls/hr IVPB DAILY [facility] Rx#: [id number] Diflucan Premix 400 MG/200 ML 200 / 200 400 mg In 200 ml @ 200 mls/hr IVPB ONCE ONE Rx#:[id number] Magnesium Sulfate 2 GM In 0.9 % 104 / 104 Sodium Chloride 100 ML @ 52 mls/hr IVPB Q6H PRN Rx#: [id number] Zosyn 3.375 GM In 0.9 % Sodium 100 / 100 100 / 200 100 / 200 Chloride (Mini-Bag +) 100 ML @ 25 mls/hr IVPB Q8H [facility] Rx#: [id number] Oral 0 / 0 0 / 0 Output: Stool 200 / 200 Other 0 / 0 Catheter / 45 / 45 Gastric Drainage / 100 / 100 Wound Drainage 65 / 65 Lower Abdomen 65 / 65 Other: Weight 126.8 kg Blood Glucose* 118 105 Patient Weight 04/26/19 23:59 Weight 126.8 kg - General physical appearance other (sedated on vent) - Respiratory crackles: bilateral, rales: bilateral - Cardiovascular Addtional Comments: severely hypotensive - Abdomen Abdomen: Absent: bowel sounds present - Incision Incision: Present: clean and dry, intact - Labs 04/26/19 04:15 04/26/19 04:15 Diabetes panel 04/25/19 04/25/19 04/26/19 Range/Units 13:51 17:24 00:00 Sodium 149 H D 144 (136-145) mEq/L Potassium 3.2 L D 3.5 4.2 (3.5-5.1) mEq/L Chloride 107 113 H (98-107) mEq/L Carbon Dioxide 24 17 L (23-29) mEq/L BUN 23 30 H (8-23) mg/dL Creatinine 1.37 H 2.23 H (0.60-1.20) mg/dL Glucose 99 147 H (70-105) mg/dL Calcium 8.9 7.9 L (8.6-10.3) mg/dL AST 153 H 2404 H (13-39) Units/L ALT 133 H 1597 H (7-52) Units/L Alkaline Phosphatase 88 103 (34-104) Units/L Albumin 3.1 L 2.8 L (3.5-5.7) g/dL 04/26/19 Range/Units 04:15 Sodium 145 (136-145) mEq/L Potassium 4.9 (3.5-5.1) mEq/L Chloride 114 H (98-107) mEq/L Carbon Dioxide 16 L (23-29) mEq/L BUN 33 H (8-23) mg/dL Creatinine 2.70 H (0.60-1.20) mg/dL Glucose 116 H (70-105) mg/dL Calcium 7.8 L (8.6-10.3) mg/dL AST (13-39) Units/L ALT (7-52) Units/L Alkaline Phosphatase (34-104) Units/L Albumin (3.5-5.7) g/dL Calcium panel 04/25/19 04/26/19 04/26/19 Range/Units 13:51 00:00 04:15 Calcium 8.9 7.9 L 7.8 L (8.6-10.3) mg/dL Phosphorus 6.3 H (2.7-4.5) mg/dL Albumin 3.1 L 2.8 L (3.5-5.7) g/dL Pituitary panel 04/25/19 04/25/19 04/26/19 Range/Units 13:51 17:24 00:00 Sodium 149 H D 144 (136-145) mEq/L Potassium 3.2 L D 3.5 4.2 (3.5-5.1) mEq/L Chloride 107 113 H (98-107) mEq/L Carbon Dioxide 24 17 L (23-29) mEq/L BUN 23 30 H (8-23) mg/dL Creatinine 1.37 H 2.23 H (0.60-1.20) mg/dL Glucose 99 147 H (70-105) mg/dL Calcium 8.9 7.9 L (8.6-10.3) mg/dL 04/26/19 Range/Units 04:15 Sodium 145 (136-145) mEq/L Potassium 4.9 (3.5-5.1) mEq/L Chloride 114 H (98-107) mEq/L Carbon Dioxide 16 L (23-29) mEq/L BUN 33 H (8-23) mg/dL Creatinine 2.70 H (0.60-1.20) mg/dL Glucose 116 H (70-105) mg/dL Calcium 7.8 L (8.6-10.3) mg/dL Adrenal panel 04/25/19 04/25/19 04/26/19 Range/Units 13:51 17:24 00:00 Sodium 149 H D 144 (136-145) mEq/L Potassium 3.2 L D 3.5 4.2 (3.5-5.1) mEq/L Chloride 107 113 H (98-107) mEq/L Carbon Dioxide 24 17 L (23-29) mEq/L BUN 23 30 H (8-23) mg/dL Creatinine 1.37 H 2.23 H (0.60-1.20) mg/dL Glucose 99 147 H (70-105) mg/dL Calcium 8.9 7.9 L (8.6-10.3) mg/dL Total Bilirubin 0.6 0.7 (0.3-1.0) mg/dL AST 153 H 2404 H (13-39) Units/L ALT 133 H 1597 H (7-52) Units/L Alkaline Phosphatase 88 103 (34-104) Units/L Albumin 3.1 L 2.8 L (3.5-5.7) g/dL 04/26/19 Range/Units 04:15 Sodium 145 (136-145) mEq/L Potassium 4.9 (3.5-5.1) mEq/L Chloride 114 H (98-107) mEq/L Carbon Dioxide 16 L (23-29) mEq/L BUN 33 H (8-23) mg/dL Creatinine 2.70 H (0.60-1.20) mg/dL Glucose 116 H (70-105) mg/dL Calcium 7.8 L (8.6-10.3) mg/dL Total Bilirubin (0.3-1.0) mg/dL AST (13-39) Units/L ALT (7-52) Units/L Alkaline Phosphatase (34-104) Units/L Albumin (3.5-5.7) g/dL Consult Discharge Plan - Plan Referrals: Henry Jerry DO [Primary Care Provider] -
[2019-04-26] MEDS ORDERED: *HR* Dextrose 50 % in Water (Syg) 50 ML SYRINGE IVP ONE (13:35)
[2019-04-26] MEDS ORDERED: Fluconazole 400 MG/200 ML 400 MG/200 ML BAG IVPB ONE (14:03)
[2019-04-26 15:06] VITALS: BP 33/21
--- NOTE | 2019-04-26 15:53 | Death Note ---
<Lucinda Herrera - Last Filed: 04/26/19 15:46> Discharge Sum: Summary - Date and Time Date of admission: 04/25/19 09:30 Date of : 04/26/19 Time of : 15:37 - Summary Details: Was DNR-CCA with family present at bedside. Nurses noted asystole on telemetry. Nurses Kameron and Solange confirmed no heart sounds. This provider confirmed no heart sounds. Patient was compassionately extubated. At that time, there were no spontaneous respirations. Time of was 1537. - Additional Data Confirmation of as documented by pronouncing clinician: no pulse, no respirations, no heart sounds, pupils fixed and dilated Family: at bedside Attending/PCP notified?: Yes Attending physician: Mio Lopez MD Was code activated?: No Discharge Sum: Diag - PCOD Probable Cause of : Cardiorespiratory arrest Discharge Sum: Prov - Provider Primary care physician: Henry Jerry Consults: 04/25/19 04:41 Consult to Surgery [CONS] Stat Consulting Provider: Acute Care Surgery Reason for Consult: small bowel obstruction concerns for incarceration Time Notified: 03:45 Call Completed: Yes 04/25/19 14:04 Consult to Critical Care [CONS] Stat Consulting Provider: [facility]m [facility] Reason for Consult: sepsis and ventilator management Time Notified: 13:00 Call Completed: Yes 04/26/19 11:04 Consult to Nephrology [CONS] Routine Consulting Provider: [facility]/TAE/LISY/PAUL Reason for Consult: anuric, creatinine trending up, evaluation for CVVHD Call Completed: Yes Pronouncing clinician: Lucinda Herrera <Sharlene Tillman - Last Filed: 04/26/19 16:37> Discharge Sum: Summary - Date and Time Date of admission: 04/25/19 09:30 - Additional Data Attending physician: Mio Lopez MD Discharge Sum: Prov - Provider Primary care physician: Henry Jerry Consults: 04/25/19 04:41 Consult to Surgery [CONS] Stat Consulting Provider: Acute Care Surgery Reason for Consult: small bowel obstruction concerns for incarceration Time Notified: 03:45 Call Completed: Yes 04/25/19 14:04 Consult to Critical Care [CONS] Stat Consulting Provider: Pulm [facility] Reason for Consult: sepsis and ventilator management Time Notified: 13:00 Call Completed: Yes 04/26/19 11:04 Consult to Nephrology [CONS] Routine Consulting Provider: [facility]/TAE/LISY/PAUL Reason for Consult: anuric, creatinine trending up, evaluation for CVVHD Call Completed: Yes - Attending Attestation I examined this patient and my medical decision-making was reviewed with the Resident Physician. I agree with the documented findings, disposition and treatment plan as described except to the extent set forth below. Patient seen and examined. Labs, radiology, chart personally reviewed. Agree with resident's history and physical, assessment, plan with following comments: Patient's condition has deteriorated significantly with severe lactic acidosis and multiorgan failures and urgently she from septic shock. Patient had refractory shock and did not respond to any treatment. Multiple discussion at the bedside with the family the been updated during the course of hospitalization. Patient CODE STATUS was changed before her .
[2019-04-26] MEDS ORDERED: Piperacillin/Tazobactam 3.375 GM in 0.9 % Sodium Chloride Mini Bag 100 ML IVPB SCH (16:00)
--- NOTE | 2019-04-26 16:52 | Nephrology Consult Note ---
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, family agreeable to supportive care for now Can bolus with albumin along with fluids already given Prognosis is grave Qualifiers: Renal failure chronicity: acute Qualified Code(s): N17.9 - Acute kidney failure, unspecified (2) Acute respiratory failure with hypoxemia Status: Acute per critical care (3) Incarcerated hernia Status: Acute POD #1 bowel resection History of Present Illness - Reason for Consult Consult date: 04/26/19 Acute Kidney Injury Requesting physician: Lucinda Herrera - History of Present Illness 68 y o female with PMH of DM, HTN, COPD, CAD and morbid obesity admitted with severe chest, abdomen and back pain and was noted with incarcerated hernia requiring surgical intervention with extensive bowel resection noted. Pt remains intubated and sedated with family at beside, hypotensive on max pressor support. Renal consulted for worsening renal fxn with SCr doubling overnight. Past Med Surg Social Fam HX - Past Medical History Medical history: arthritis, asthma, cancer, CHF, COPD, coronary artery disease, diabetes, hyperlipidemia, hypertension, myocardial infarction, renal disease Additional medical history: urterine CA "probably like 10 years ago" - Past Surgical History Surgical History: cancer surgery, hysterectomy, knee replacement - Social History Smoking Status: Former smoker Alcohol use: none Drug use: none - Family History Daughter Living Status: Still Living Hx Family Cardiac Disorders: Yes (HTN) Hx Family Respiratory Disorders: No Hx Family Cancer: No Hx Family GI Disorders: No Hx Family Endocrine Disorder: No Hx Family Neuromuscular Disorders: No Hx Family Neurologic Disorders: No Hx Family HEENT Disorders: No Hx Family Autoimmune Disorders: No Medications and Allergies Gabapentin 800 mg PO TID 01/14/19 [History] Glimepiride [Amaryl] 2 mg PO HS 01/14/19 [History] Ipratropium/Albuterol Sulfate [Combivent Respimat 20-100 Mcg] 1 puff IH QID 01/14/19 [History] Ipratropium/Albuterol Sulfate [Iprat-Albut 0.5-3(2.5) mg/3 ml] 3 ml IH TID PRN 01/14/19 [History] Lisinopril [Zestril] 40 mg PO DAILY 01/14/19 [History] Metformin HCl [Glucophage] 500 mg PO BID 01/14/19 [History] Omeprazole [PriLOSEC] 40 mg PO DAILY 01/14/19 [History] Red Yeast Rice 600 mg PO DAILY 01/14/19 [History] Tiotropium [place] [Spiriva Respimat] 2 puff IH DAILY 01/14/19 [History] Tramadol HCl [Ultram] 50 mg PO Q6H PRN 01/14/19 [History] dilTIAZem HCl [Diltiazem 24Hr ER (Cd)] 360 mg PO DAILY 01/14/19 [History] Aspirin [Lo-Dose Aspirin EC] 81 mg PO DAILY 01/15/19 [History] Cholecalciferol (D-3) [Vitamin D] 1,000 unit PO DAILY 01/15/19 [History] Cyanocobalamin (Vitamin B-12) [Vitamin B-12] 1,000 mcg PO DAILY 01/15/19 [History] DiphenhydraMINE [Benadryl] 50 mg PO BID 01/15/19 [History] Iron Amino Acid Chelate/B12/FA [Ferractiv Iron 27 mg Formula] 1 cap PO DAILY 01/15/19 [History] Naproxen Sodium [Aleve] 220 mg PO HS 01/15/19 [History] Doxycycline 100 mg PO Q12HR #5 capsule 01/17/19 [Rx] Furosemide [Lasix] 40 mg PO DAILY #30 tablet 01/17/19 [Rx] predniSONE [PredniSONE] 40 mg PO DAILY #3 tablet 01/17/19 [Rx] Hyoscyamine SL [Levsin SL] 0.125 mg SL Q4HR #12 tab.subl 04/24/19 [Rx] Allergy/AdvReac Type Severity Reaction Status Date / Time oxycodone [From Percocet] AdvReac See Verified 01/14/19 22:38 Comments Optlllb-Myi-Cmr Reductase AdvReac Muscle Pain Verified 01/14/19 22:38 Inhibitor [Statins] Review of Systems ROS unobtainable: due to endotracheal tube Exam - Vital Signs Vital signs: Initial Vital Signs Temp Pulse Resp BP Pulse Ox 97.8 F 74 26 169/70 99 04/24/19 18:46 04/24/19 18:46 04/24/19 18:46 04/24/19 18:46 04/24/19 18:46 Vital Signs - Last 8 Hours Temp Pulse Resp BP Pulse Ox 04/26/19 15:09 17 62 04/26/19 15:00 43 16 33/21 62 04/26/19 14:00 65 17 53/27 100 04/26/19 13:20 75 16 42/27 96 04/26/19 12:45 77 04/26/19 12:30 100.5 F H 77 19 48/32 91 04/26/19 11:12 77 17 51/32 90 04/26/19 11:09 19 85 04/26/19 10:50 77 19 45/29 91 04/26/19 10:00 79 17 58/36 96 04/26/19 09:13 83 18 50/33 96 Intake and Output 04/26/19 04/26/19 04/26/19 07:59 15:59 23:59 Intake Total 2059 / 3527 1468 / 3527 Output Total 410 / 1260 850 / 1260 Balance 1649 / 2267 618 / 2267 Intake: IV Fluids 2059 / 3527 1468 / 3527 ALBURX 5% 12.5 gm In 250 ml @ 500 / 500 60 mls/hr IVC .Q4H10M [facility] Rx#: [id number] D5% And 0.9% Nacl 1000 Ml 1,000 800 / 800 ML @ 100 mls/hr IVC .Q10H [facility] Rx#:[id number] FentaNYL (PF) 1,000 MCG In 0.9 100 / 100 0 / 100 % Sodium Chloride 80 ML @ 50 MCG/HR 5 mls/hr IVC CONT [facility] Rx #:[id number] Levophed 8 MG In 0.9 % Sodium 516 / 774 258 / 774 Chloride 250 ML @ 8 MCG/MIN 15. 48 mls/hr IVC CONT [facility] Rx#: [id number] Phenylephrine 50 MG In 0.9 % 255 / 765 510 / 765 Sodium Chloride 250 ML @ 40 MCG /MIN 12.24 mls/hr IVC CONT [facility] Rx#:[id number] Diprivan 1,000 mg In 100 ml @ 5 134 / 134 MCG/KG/MIN 3.702 mls/hr IVC . Q24H [facility] Rx#:[id number] Calcium Gluconate 1gm/50mL 1 gm 50 / 50 In 50 ml @ 50 mls/hr IVPB Q6HR PRN Rx#:[id number] INVanz 1,000 MG In 0.9 % Sodium 100 / 100 Chloride (Mini-Bag +) 100 ML @ 100 mls/hr IVPB DAILY [facility] Rx#: [id number] Magnesium Sulfate 2 GM In 0.9 % 104 / 104 Sodium Chloride 100 ML @ 52 mls/hr IVPB Q6H PRN Rx#: [id number] Zosyn 3.375 GM In 0.9 % Sodium 100 / 200 100 / 200 Chloride (Mini-Bag +) 100 ML @ 25 mls/hr IVPB Q8H [facility] Rx#: [id number] Oral 0 / 0 0 / 0 Output: Stool 200 / 1000 800 / 1000 Other 0 / 0 Catheter 45 / 45 0 / 45 Gastric Drainage 100 / 150 50 / 150 Wound Drainage 65 / 65 Lower Abdomen 65 / 65 Other: Weight 126.8 kg Blood Glucose* 105 131 Patient Weight 04/26/19 23:59 Weight 126.8 kg - General Appearance General appearance: sedated on ventilator, intubated EENT: ATNC, mucous membranes moist Neck: no JVD, supple Respiratory: course breath sounds Cardiology: no edema, normal S1, normal S2 Gastrointestinal: absent bowel sounds Additional Comments: surgical wound with dressing Integumentary: cool/clammy Additional Comments: sedated Musculoskeletal: no deformities Additional Comments: sedated Results - Lab Results 04/26/19 04:15 04/26/19 04:15 Most recent lab results 04/25/19 04/26/19 11:26 07:48 ABG pH 7.19 L* 7.11 L* ABG pCO2 36 45 ABG pO2 353 H 65 L ABG HCO3 14 L 14 L ABG O2 Saturation 100 H 84 L Consult Discharge Plan - Plan Referrals: Henry Jerry DO [Primary Care Provider] -
== END 2019-04-26 15:37 | disposition expired | DRG 853 ==
LOC: 3ANU 18:42 → EMEROOARM 18:42 → 3ANU 04-25 06:01 → ICNU 04-25 11:31
PROVIDERS: ADMIT Surgery; ATTEND Surgery